=== PATIENT | male | born 1945 | race Caucasian/White ===

== ENCOUNTER 2016-12-13 16:13 | Emergency (ER) | payer MEDICARE ==
[2016-12-13] MEDS ORDERED: IPRATROPIUM-ALBUTEROL 3 ML NEB INHALATION STA (16:21)
--- NOTE | 2016-12-13 16:31 | ED ---
General Adult HPI - General Chief complaint: Shortness of Breath Stated complaint: sea Time Seen by Provider: 12/13/16 16:19 Source: patient, EMS, RN notes reviewed Mode of arrival: EMS Limitations: no limitations - History of Present Illness Initial comments: Patient is a pleasant 71-year-old male presenting to the emergency department complaining of difficulty breathing. Onset of symptoms was today. No fevers. Patient does have a cough however this is chronic and unchanged. Patient has a history of smoking however is not currently a smoker. No chest pain. No leg pain or leg swelling. No history of similar symptoms previously. No history of chronic lung problems. - Related Data Home Medications Medication Instructions Recorded Confirmed Ibuprofen [Advil] 200 mg PO Q6HR PRN 12/13/16 12/13/16 glipiZIDE XL [Glucotrol Xl] 5 mg PO DAILY 12/13/16 12/13/16 metFORMIN HCL [Glucophage] 500 mg PO BID 12/13/16 12/13/16 Previous Rx's Medication Instructions Recorded Albuterol Inhaler [Ventolin Hfa 2 puff INHALATION Q4HR PRN #1 12/13/16 Inhaler] inhaler predniSONE 20 mg PO BID #10 tab 12/13/16 Allergies Allergy/AdvReac Type Severity Reaction Status Date / Time No Known Allergies Allergy Verified 12/13/16 16:40 Review of Systems ROS Statement: Those systems with pertinent positive or pertinent negative responses have been documented in the HPI. ROS Other: All systems not noted in ROS Statement are negative. Constitutional: Denies: fever, chills Eyes: Denies: eye pain ENT: Denies: ear pain Respiratory: Reports: cough, dyspnea Cardiovascular: Denies: chest pain Endocrine: Reports: fatigue Gastrointestinal: Denies: abdominal pain Genitourinary: Denies: urgency Musculoskeletal: Denies: back pain Skin: Denies: rash Neurological: Denies: weakness Past Medical History Past Medical History: Diabetes Mellitus Additional Past Medical History / Comment(s): Prostate cancer History of Any Multi-Drug Resistant Organisms: None Reported Past Surgical History: No Surgical Hx Reported Past Psychological History: No Psychological Hx Reported Smoking Status: Never smoker Past Alcohol Use History: None Reported Past Drug Use History: None Reported General Exam Limitations: no limitations General appearance: alert, in no apparent distress Head exam: Present: atraumatic Eye exam: Present: normal appearance, PERRL ENT exam: Present: normal oropharynx Neck exam: Present: normal inspection Respiratory exam: Present: wheezes Cardiovascular Exam: Present: tachycardia GI/Abdominal exam: Present: soft. Absent: tenderness Extremities exam: Present: normal inspection. Absent: pedal edema, calf tenderness Back exam: Present: normal inspection Neurological exam: Present: alert Psychiatric exam: Present: normal affect, normal mood Skin exam: Present: normal color Course Vital Signs 12/13/16 12/13/16 12/13/16 16:18 16:50 17:09 Temperature 98.5 F Pulse Rate 107 H 108 H 104 H Respiratory 26 H 16 Rate Blood Pressure 133/72 141/79 O2 Sat by Pulse 93 L 96 Oximetry 12/13/16 12/13/16 17:26 17:50 Temperature 98.2 F Pulse Rate 107 H 111 H Respiratory 12 Rate Blood Pressure 152/70 O2 Sat by Pulse 95 Oximetry EKG Findings - EKG Comments: EKG Findings:: Sinus tachycardia 105. FL 168. QRS 146. QT 384. QTC 507. Left axis. Right bundle branch block. Left anterior fascicular block. Inferior Q waves. No acute ST change. Medical Decision Making - Medical Decision Making Patient reexamined and significantly improved. Heart rate 104. Pulse ox 95% on room air. Patient requesting discharge. Patient updated on results and need for follow-up. Son does state patient does have a history of COPD. - Lab Data Result diagrams: 12/13/16 16:19 12/13/16 16:19 Lab Results 12/13/16 12/13/16 12/13/16 Range/Units 16:19 16:19 16:19 WBC 9.2 (3.8-10.6) k/uL RBC 4.58 (4.30-5.90) m/uL Hgb 15.5 (13.0-17.5) gm/dL Hct 47.3 (39.0-53.0) % MCV 103.2 H (80.0-100.0) fL MCH 33.7 (25.0-35.0) pg MCHC 32.7 (31.0-37.0) g/dL RDW 13.2 (11.5-15.5) % Plt Count 210 (150-450) k/uL Neutrophils % 70 % Lymphocytes % 20 % Monocytes % 5 % Eosinophils % 1 % Basophils % 1 % Neutrophils # 6.4 (1.3-7.7) k/uL Lymphocytes # 1.8 (1.0-4.8) k/uL Monocytes # 0.5 (0-1.0) k/uL Eosinophils # 0.1 (0-0.7) k/uL Basophils # 0.1 (0-0.2) k/uL Macrocytosis Slight PT (9.0-12.0) sec INR (<1.1) APTT (22.0-30.0) sec D-Dimer (<0.60) mg/L FEU Sodium 135 L (137-145) mmol/L Potassium 4.1 (3.5-5.1) mmol/L Chloride 97 L (98-107) mmol/L Carbon Dioxide 22 (22-30) mmol/L Anion Gap 16 mmol/L BUN 20 (9-20) mg/dL Creatinine 1.02 (0.66-1.25) mg/dL Est GFR (MDRD) Af Amer >60 (>60 ml/min/1.73 sqM) Est GFR (MDRD) Non-Af >60 (>60 ml/min/1.73 sqM) Glucose 84 (74-99) mg/dL Calcium 8.9 (8.4-10.2) mg/dL Total Bilirubin 0.7 (0.2-1.3) mg/dL AST 40 (17-59) U/L ALT 46 (21-72) U/L Alkaline Phosphatase 78 (38-126) U/L Total Creatine Kinase 175 H (55-170) U/L CK-MB (CK-2) 2.2 (0.0-2.4) ng/mL CK-MB (CK-2) Rel Index 1.3 Troponin I <0.012 (0.000-0.034) ng/mL NT-Pro-B Natriuret Pep pg/mL Total Protein 8.0 (6.3-8.2) g/dL Albumin 4.4 (3.5-5.0) g/dL 12/13/16 12/13/16 Range/Units 16:19 16:19 WBC (3.8-10.6) k/uL RBC (4.30-5.90) m/uL Hgb (13.0-17.5) gm/dL Hct (39.0-53.0) % MCV (80.0-100.0) fL MCH (25.0-35.0) pg MCHC (31.0-37.0) g/dL RDW (11.5-15.5) % Plt Count (150-450) k/uL Neutrophils % % Lymphocytes % % Monocytes % % Eosinophils % % Basophils % % Neutrophils # (1.3-7.7) k/uL Lymphocytes # (1.0-4.8) k/uL Monocytes # (0-1.0) k/uL Eosinophils # (0-0.7) k/uL Basophils # (0-0.2) k/uL Macrocytosis PT 10.2 (9.0-12.0) sec INR 1.0 (<1.1) APTT 22.7 (22.0-30.0) sec D-Dimer 0.44 (<0.60) mg/L FEU Sodium (137-145) mmol/L Potassium (3.5-5.1) mmol/L Chloride (98-107) mmol/L Carbon Dioxide (22-30) mmol/L Anion Gap mmol/L BUN (9-20) mg/dL Creatinine (0.66-1.25) mg/dL Est GFR (MDRD) Af Amer (>60 ml/min/1.73 sqM) Est GFR (MDRD) Non-Af (>60 ml/min/1.73 sqM) Glucose (74-99) mg/dL Calcium (8.4-10.2) mg/dL Total Bilirubin (0.2-1.3) mg/dL AST (17-59) U/L ALT (21-72) U/L Alkaline Phosphatase (38-126) U/L Total Creatine Kinase (55-170) U/L CK-MB (CK-2) (0.0-2.4) ng/mL CK-MB (CK-2) Rel Index Troponin I (0.000-0.034) ng/mL NT-Pro-B Natriuret Pep 54 pg/mL Total Protein (6.3-8.2) g/dL Albumin (3.5-5.0) g/dL - Radiology Data Radiology results: image reviewed (Chest x-ray shows no acute process) Disposition Clinical Impression: Acute exacerbation of chronic obstructive airways disease Disposition: HOME SELF-CARE Condition: Stable Instructions: COPD (Chronic Obstructive Pulmonary Disease) (ED) Additional Instructions: Please follow-up with your doctor this week. Return for difficulty in breathing , fevers, worsening symptoms or other concerns. Prescriptions: Albuterol Inhaler [Ventolin Hfa Inhaler] 2 puff INHALATION Q4HR PRN #1 inhaler PRN Reason: Dyspnea predniSONE 20 mg PO BID #10 tab Referrals: Tomi Toro MD [Primary Care Provider] - 1-2 days Time of Disposition: 18:16
[2016-12-13 16:36] LABS: Basophils # (A) 0.1 k/uL (0-0.2); Basophils % (A) 1 %; CH 35.2; CHCM 34.3; Eosinophils # (A) 0.1 k/uL (0-0.7); Eosinophils % (A) 1 %; HCT 47.3 % (39.0-53.0); HDW 2.52; HGB 15.5 gm/dL (13.0-17.5); Luc # (Auto) 0.28; Luc % (Auto) 3; Lymphocytes # (A) 1.8 k/uL (1.0-4.8); Lymphocytes % (A) 20 %; MCH 33.7 pg (25.0-35.0); MCHC 32.7 g/dL (31.0-37.0); MCV 103.2 fL (80.0-100.0); Macrocytosis Slight; Mean Platelet Volume 6.5; Monocytes # (A) 0.5 k/uL (0-1.0); Monocytes % (A) 5 %; Neutrophils # (A) 6.4 k/uL (1.3-7.7); Neutrophils % (A) 70 %; RBC 4.58 m/uL (4.30-5.90); RDW 13.2 % (11.5-15.5); WBC 9.2 k/uL (3.8-10.6)
[2016-12-13 16:48] LABS: Partial Thromboplastin Time 22.7 sec (22.0-30.0); Prothrombin Time 10.2 sec (9.0-12.0)
[2016-12-13 16:49] LABS: ALT 46 U/L (21-72); AST 40 U/L (17-59); Alkaline Phosphatase 78 U/L (38-126); Anion Gap 16 mmol/L; Blood Urea Nitrogen 20 mg/dL (9-20); Calcium 8.9 mg/dL (8.4-10.2); Carbon Dioxide 22 mmol/L (22-30); Chloride 97 mmol/L (98-107); Glucose 84 mg/dL (74-99); Non-African American GFR(MDRD) >60 (>60 ml/min/1.73 sqM); Potassium 4.1 mmol/L (3.5-5.1); Sodium 135 mmol/L (137-145); Total Bilirubin 0.7 mg/dL (0.2-1.3)
[2016-12-13 17:01] LABS: Creatine Kinase 175 U/L (55-170)
[2016-12-13 17:14] LABS: Creatine Kinase MB 2.2 ng/mL (0.0-2.4); Troponin I <0.012 ng/mL (0.000-0.034)
--- NOTE | 2016-12-13 17:14 | XR ---
EXAMINATION TYPE: XR chest 2V DATE OF EXAM: 12/13/2016 5:03 PM COMPARISON: 01/08/2012 HISTORY: Dyspnea TECHNIQUE: Frontal and lateral views of the chest are obtained. FINDINGS: There is no focal air space opacity, pleural effusion, or pneumothorax seen. The cardiac silhouette size is within normal limits. The osseous structures are intact. IMPRESSION: No acute cardiopulmonary process.
[2016-12-13 17:53] VITALS: BP 152/70; PULSE 111; RESP 12; TEMP 98.2
== END 2016-12-13 18:24 | disposition home or self-care (01) ==
LOC: EC 16:13
DX: J44.1 Chronic obstructive pulmonary disease with (acute) exacerbation (principal); E11.9 Type 2 diabetes mellitus without complications; Z87.891 Personal history of nicotine dependence; Z85.46 Personal history of malignant neoplasm of prostate; Z79.84 Long term (current) use of oral hypoglycemic drugs
CPT/HCPCS: 36415; 71020; 80053; 82550; 82553; 83880; 84484; 85025; 85379; 85610; 85730; 93005; 94640; 99285

== ENCOUNTER 2020-04-28 14:35 | Inpatient (IN) | payer MEDICARE ==
[2020-04-28 14:59] LABS: Glucose,Whole Blood 413 mg/dL (75-99)
[2020-04-28] MEDS ORDERED: SODIUM CHLORIDE 0.9% 1,000 ML IV STA (15:13)
--- NOTE | 2020-04-28 16:00 | XR ---
EXAMINATION TYPE: XR chest 2V DATE OF EXAM: 04/28/2020 COMPARISON: Chest x-ray December 13, 2016. HISTORY: Weakness. TECHNIQUE: Frontal and lateral views of the chest are obtained. FINDINGS: There is no focal air space opacity, pleural effusion, or pneumothorax seen. The cardiac silhouette size is upper limits of normal. Overlying EKG leads. The osseous structures are intact. IMPRESSION: No acute cardiopulmonary process.
[2020-04-28 16:05] LABS: ALT 16 U/L (4-49); AST 90 U/L (17-59); African American GFR (CKD) 73 (>60 ml/min/1.73 sqM); Albumin 4.1 g/dL (3.5-5.0); Alkaline Phosphatase 100 U/L (38-126); Anion Gap 10 mmol/L; Blood Urea Nitrogen 35 mg/dL (9-20); Calcium 9.7 mg/dL (8.4-10.2); Carbon Dioxide 28 mmol/L (22-30); Chloride 98 mmol/L (98-107); Glucose 409 mg/dL (74-99); Magnesium 1.9 mg/dL (1.6-2.3); Non-African American GFR(CKD) 63 (>60 ml/min/1.73 sqM); Partial Thromboplastin Time 22.2 sec (22.0-30.0); Potassium 4.6 mmol/L (3.5-5.1); Sodium 136 mmol/L (137-145); Total Bilirubin 0.8 mg/dL (0.2-1.3); Total Protein 7.5 g/dL (6.3-8.2)
[2020-04-28 16:10] LABS: Basophils % (A) 0 %; Eosinophils # (A) 0.1 k/uL (0-0.7); Eosinophils % (A) 0 %; HCT 45.9 % (39.0-53.0); HGB 14.6 gm/dL (13.0-17.5); Lymphocytes # (A) 0.7 k/uL (1.0-4.8); Lymphocytes % (A) 5 %; MCH 30.4 pg (25.0-35.0); MCHC 31.8 g/dL (31.0-37.0); MCV 95.4 fL (80.0-100.0); Mean Platelet Volume 6.9; Monocytes # (A) 0.7 k/uL (0-1.0); Monocytes % (A) 4 %; Neutrophils # (A) 13.3 k/uL (1.3-7.7); Neutrophils % (A) 89 %; Platelet Count 271 k/uL (150-450); RBC 4.81 m/uL (4.30-5.90); RDW 13.2 % (11.5-15.5); WBC 14.9 k/uL (3.8-10.6)
--- NOTE | 2020-04-28 16:21 | ED ---
Fall HPI - General Chief Complaint: Fall Stated Complaint: Syncope,High Blood Sugar Time Seen by Provider: 04/28/20 15:13 Source: patient, EMS Mode of arrival: EMS Limitations: no limitations - History of Present Illness Initial Comments: 75-year-old male presents emergency Department chief well weakness. Patient is been doing more with the last few days days. Patient states she's been having trouble getting up and down off the toilet. Patient states he was unable to get up today. Patient also states he fell out of bed but had no head injury no loss conscious. Doesn't want a headache dizziness. Patient states she just feels weak. Also states that hisbeen having mild swelling in his blood sugar has been elevated. Patient does admit that he is a diabetic. Does not always take medications. He has no mental abdominal pain. - Related Data Home Medications Medication Instructions Recorded Confirmed glipiZIDE XL [Glucotrol XL] 5 mg PO DAILY 12/13/16 06/23/18 Previous Rx's Medication Instructions Recorded Acetaminophen Tab [Tylenol] 650 mg PO Q6HR PRN tab 06/27/18 Mesalamine W/Cleansing Wipes 4 gm RECTAL HS #30 ml 06/27/18 [Rowasa 4 gm/60 ml Enema Kit] Omeprazole [PriLOSEC] 40 mg PO AC-BRKFST #14 capsule. 06/27/18 metFORMIN HCL [Glucophage] 500 mg PO BID #0 06/27/18 Allergies Allergy/AdvReac Type Severity Reaction Status Date / Time No Known Allergies Allergy Verified 06/23/18 13:56 Review of Systems ROS Statement: Those systems with pertinent positive or pertinent negative responses have been documented in the HPI. ROS Other: All systems not noted in ROS Statement are negative. Past Medical History Past Medical History: Diabetes Mellitus Additional Past Medical History / Comment(s): Prostate cancer History of Any Multi-Drug Resistant Organisms: None Reported Past Surgical History: No Surgical Hx Reported Past Anesthesia/Blood Transfusion Reactions: No Reported Reaction Past Psychological History: No Psychological Hx Reported Smoking Status: Former smoker Past Alcohol Use History: Occasional Past Drug Use History: None Reported - Past Family History Father History Unknown: Yes Mother History Unknown: Yes General Exam Limitations: no limitations General appearance: alert, in no apparent distress Head exam: Present: atraumatic, normocephalic, normal inspection Course Vital Signs 04/28/20 14:53 Temperature 99.2 F Pulse Rate 114 H Respiratory 18 Rate Blood Pressure 152/91 O2 Sat by Pulse 96 Oximetry Medical Decision Making - Medical Decision Making 75-year-old male presented for jaundice weakness. Patient had labs dissection urinalysis. Patient has evidence of rhabdomyolysis. Patient was hydrated will be admitted for monitoring, hydration. - Lab Data Result diagrams: 04/28/20 Unknown 04/28/20 Unknown Lab Results 04/28/20 04/28/20 04/28/20 Range/Units 14:38 Unknown Unknown WBC 14.9 H (3.8-10.6) k/uL RBC 4.81 (4.30-5.90) m/uL Hgb 14.6 (13.0-17.5) gm/dL Hct 45.9 (39.0-53.0) % MCV 95.4 (80.0-100.0) fL MCH 30.4 (25.0-35.0) pg MCHC 31.8 (31.0-37.0) g/dL RDW 13.2 (11.5-15.5) % Plt Count 271 (150-450) k/uL Neutrophils % 89 % Lymphocytes % 5 % Monocytes % 4 % Eosinophils % 0 % Basophils % 0 % Neutrophils # 13.3 H (1.3-7.7) k/uL Lymphocytes # 0.7 L (1.0-4.8) k/uL Monocytes # 0.7 (0-1.0) k/uL Eosinophils # 0.1 (0-0.7) k/uL Basophils # 0.0 (0-0.2) k/uL PT 10.0 (9.0-12.0) sec INR 1.0 (<1.2) APTT 22.2 (22.0-30.0) sec Sodium (137-145) mmol/L Potassium (3.5-5.1) mmol/L Chloride (98-107) mmol/L Carbon Dioxide (22-30) mmol/L Anion Gap mmol/L BUN (9-20) mg/dL Creatinine (0.66-1.25) mg/dL Est GFR (CKD-EPI)AfAm (>60 ml/min/1.73 sqM) Est GFR (CKD-EPI)NonAf (>60 ml/min/1.73 sqM) Glucose (74-99) mg/dL POC Glucose (mg/dL) 413 H (75-99) mg/dL POC Glu [employer] ID Libby Rendon Plasma Lactic Acid Peng (0.7-2.0) mmol/L Calcium (8.4-10.2) mg/dL Magnesium (1.6-2.3) mg/dL Total Bilirubin (0.2-1.3) mg/dL AST (17-59) U/L ALT (4-49) U/L Alkaline Phosphatase (38-126) U/L Creatine Kinase (55-170) U/L Troponin I (0.000-0.034) ng/mL Total Protein (6.3-8.2) g/dL Albumin (3.5-5.0) g/dL Acetone, Qual (Negative) 04/28/20 04/28/20 04/28/20 Range/Units Unknown Unknown Unknown WBC (3.8-10.6) k/uL RBC (4.30-5.90) m/uL Hgb (13.0-17.5) gm/dL Hct (39.0-53.0) % MCV (80.0-100.0) fL MCH (25.0-35.0) pg MCHC (31.0-37.0) g/dL RDW (11.5-15.5) % Plt Count (150-450) k/uL Neutrophils % % Lymphocytes % % Monocytes % % Eosinophils % % Basophils % % Neutrophils # (1.3-7.7) k/uL Lymphocytes # (1.0-4.8) k/uL Monocytes # (0-1.0) k/uL Eosinophils # (0-0.7) k/uL Basophils # (0-0.2) k/uL PT (9.0-12.0) sec INR (<1.2) APTT (22.0-30.0) sec Sodium 136 L (137-145) mmol/L Potassium 4.6 (3.5-5.1) mmol/L Chloride 98 (98-107) mmol/L Carbon Dioxide 28 (22-30) mmol/L Anion Gap 10 mmol/L BUN 35 H (9-20) mg/dL Creatinine 1.15 (0.66-1.25) mg/dL Est GFR (CKD-EPI)AfAm 73 (>60 ml/min/1.73 sqM) Est GFR (CKD-EPI)NonAf 63 (>60 ml/min/1.73 sqM) Glucose 409 H (74-99) mg/dL POC Glucose (mg/dL) (75-99) mg/dL POC Glu [employer] ID Plasma Lactic Acid Peng 3.3 H* (0.7-2.0) mmol/L Calcium 9.7 (8.4-10.2) mg/dL Magnesium 1.9 (1.6-2.3) mg/dL Total Bilirubin 0.8 (0.2-1.3) mg/dL AST 90 H (17-59) U/L ALT 16 (4-49) U/L Alkaline Phosphatase 100 (38-126) U/L Creatine Kinase 5041 H* (55-170) U/L Troponin I <0.012 (0.000-0.034) ng/mL Total Protein 7.5 (6.3-8.2) g/dL Albumin 4.1 (3.5-5.0) g/dL Acetone, Qual Negative (Negative) - EKG Data -: EKG Interpreted by [place] EKG Comments: EKG performed at 14:57 sinus tachycardia left axis deviation right bundle rate of 113 RI 152 QRS 150 QT/QTC 362/496 Disposition Clinical Impression: Fall, Rhabdomyolysis, Weakness, Hyperglycemia Disposition: ADMITTED IP TO THIS HOSP Condition: Fair Referrals: Tomi Toro MD [Primary Care Provider] - 1-2 days
[2020-04-28 16:38] LABS: Creatine Kinase 5041 U/L (55-170)
[2020-04-28] MEDS ORDERED: SODIUM CHLORIDE 0.9% 1,000 ML IV ONE (16:40)
[2020-04-28] MEDS: SODIUM CHLORIDE 0.9% 1,000 ML IV SCH (17:08)
[2020-04-28 17:22] LABS: Appearance,Urine Clear (Clear); Bilirubin,Urine Negative (Negative); Blood,Urine Moderate (Negative); Color,Urine Light Yellow; Glucose,Urine (UA) 4+ (Negative); Hyaline Casts,Urine 1 /lpf (0-2); Ketones,Urine Trace (Negative); Leukocyte Esterase,Urine Negative (Negative); Mucus,Urine Rare /hpf; Nitrite,Urine Negative (Negative); Protein,Urine Trace (Negative); RBC,Urine <1 /hpf (0-5); Specific Gravity,Urine 1.017 (1.001-1.035); Urobilinogen,Urine <2.0 mg/dL (<2.0); WBC,Urine <1 /hpf (0-5)
[2020-04-28] MEDS ORDERED: NALOXONE 0.4 MG/ML 1 ML VIAL IV PRN (17:29)
[2020-04-28] MEDS ORDERED: ONDANSETRON 4 MG/2 ML VIAL IVP PRN (17:29)
[2020-04-28] MEDS ORDERED: ACETAMINOPHEN TAB 325 MG TAB PO PRN (17:29)
[2020-04-28 17:55] LABS: Glucose,Whole Blood 334 mg/dL (75-99)
[2020-04-28] MEDS: INSULIN ASPART (NovoLOG) 100 UNIT/ML VIAL SQ SCH ×2 (17:57→20:43)
[2020-04-28] MEDS ORDERED: IPRATROPIUM-ALBUTEROL 3 ML NEB INHALATION PRN (18:08)
[2020-04-28] MEDS ORDERED: HYDROmorphone 0.5 MG/0.5 ML SYRINGE IVP PRN (18:09)
--- NOTE | 2020-04-28 19:38 | HP ---
HISTORY AND PHYSICAL DATE OF SERVICE: 04/28/2020 CHIEF COMPLAINTS: Fall and syncope and high blood sugar. HISTORY OF PRESENT ILLNESS: This 75-year-old gentleman with a past medical history of diabetes mellitus and prostate cancer, being followed by Dr. Toro in the outpatient setting, apparently had a fall and the patient complained of generalized weakness which was progressing over several days. The patient also had shortness of breath. The patient had difficulty getting up from the toilet and he fell down. The patient did not lose any consciousness. Patient came to [facility] and was admitted for evaluation and treatment. The lactic acid was 3.3 and creatinine kinase was 5041. The blood sugar was found to be elevated. WBC was also elevated. A chest x-ray, which was reviewed personally by me, showed no acute cardiopulmonary process, and the patient was admitted for further evaluation and treatment. There is no history of any fever, rigor or chills. No history of headache, loss of consciousness, seizures. PAST MEDICAL HISTORY: History of diabetes mellitus, prostate cancer. HOME MEDICATIONS: 1. Glucophage 500 mg t.i.d. 2. Glucotrol XL 10 mg daily. 3. Prilosec 40 mg with breakfast. 4. Imodium 82 mg b.i.d. 5. Lasix 20 mg with breakfast. 6. Aricept 5 mg. 7. Carbidopa L-dopa 1 b.i.d. 8. Ventolin HFA 1 puff b.i.d. ALLERGIES: NONE. FAMILY HISTORY: No history of heart disease or strokes in the family. SOCIAL HISTORY: No history of smoking. No history of alcohol intake. REVIEW OF SYSTEMS: ENT: No diminished hearing. No diminished vision. CARDIOVASCULAR SYSTEM: As mentioned earlier. RESPIRATORY SYSTEM: As mentioned earlier. GI: As mentioned earlier. : No dysuria or retention. NERVOUS SYSTEM: As mentioned earlier. ALLERGY/IMMUNOLOGY: No asthma, hayfever. MUSCULOSKELETAL: As mentioned earlier. HEMATOLOGY/ONCOLOGY: No history of anemia. ENDOCRINE: As mentioned earlier. CONSTITUTIONAL: As mentioned earlier. DERMATOLOGY: Negative. RHEUMATOLOGY: Negative. PSYCHIATRY: As mentioned earlier. PHYSICAL EXAMINATION: Patient alert and oriented x3. Pulse 89, blood pressure 150/93, respiration 18, temperature 99.2, pulse ox 99% on 2 L. HEENT: Conjunctivae normal. Oral mucosa moist. NECK: No jugular venous distention. No carotid bruit. No lymph node enlargement. CARDIOVASCULAR SYSTEM: S1, S2 muffled. No S3. No S4. RESPIRATORY SYSTEM: Breath sounds diminished at the bases. A few scattered rhonchi and crackles. ABDOMEN: Soft, obese, non-tender. No mass palpable. LEGS: Minimal leg edema. NERVOUS SYSTEM: Higher functions as mentioned earlier. Moves all 4 limbs. No focal motor or sensory deficit. LYMPHATICS: No lymph node palpable in neck, axillae or groin. JOINTS: No active deforming arthropathy. LABS: WBC 14.9, hemoglobin 14.6. Sodium 136 and lactic acid 3.3 and creatinine kinase 5041. ASSESSMENT: 1. Syncope and fall; rule out cardiac arrhythmia. 2. Hypoglycemia with diabetes mellitus, type 2, uncontrolled. 3. Acute rhabdomyolysis. 4. Generalized weakness for evaluation. 5. Shortness of breath for evaluation. 6. Elevated lactic acid; rule out sepsis. 7. Elevated white count. 8. Hyponatremia. 9. Obesity with body mass index of 33.5. 10.History of prostate cancer. 11.History of nicotine dependence. RECOMMENDATIONS AND DISCUSSION: In this 75-year-old gentleman who presented with multiple complex medical issues, we will monitor the patient closely, continue the current medications, continue with symptomatic treatment. Otherwise, monitor blood sugars closely. We will initiate Accu- Cheks before meals and at bedtime. IV hydration. Chest x-ray does not show any acute abnormality. I will obtain blood cultures and continue to monitor. Order a D-dimer; if it is positive, CT angio of the chest. Otherwise PT/OT evaluation, possible ECF rehab. Prognosis is guarded because of multiple complex medical issues. forming process line worker will also be consulted. A copy of this dictation is being forwarded to Dr. Gutierrez, who is the primary physician. MMODL / IJN: [id number] /
[2020-04-28] MEDS: IPRATROPIUM-ALBUTEROL 3 ML NEB INHALATION SCH (19:46)
[2020-04-28 20:30] LABS: Glucose,Whole Blood 355 mg/dL (75-99)
[2020-04-28] MEDS: CARBIDOPA-LEVODOPA 10-100 MG 1 EACH TAB PO SCH (20:43)
[2020-04-28] MEDS: LOPERAMIDE 2 MG CAP PO SCH (20:43)
[2020-04-28] MEDS: HEPARIN SODIUM,PORCINE 5,000 UNIT/ML 1 ML VIAL SQ SCH (20:43)
[2020-04-29] MEDS: HYDROcodone/APAP 5-325MG 1 EACH TAB PO PRN ×2 (00:36→11:31)
[2020-04-29] MEDS: SODIUM CHLORIDE 0.9% 1,000 ML IV SCH ×3 (02:56→18:11)
[2020-04-29 06:20] LABS: Glucose,Whole Blood 262 mg/dL (75-99)
[2020-04-29] MEDS: CARBIDOPA-LEVODOPA 10-100 MG 1 EACH TAB PO SCH ×2 (06:36→17:36)
[2020-04-29] MEDS: INSULIN ASPART (NovoLOG) 100 UNIT/ML VIAL SQ SCH ×4 (06:36→22:36)
[2020-04-29] MEDS: LOPERAMIDE 2 MG CAP PO SCH ×2 (06:36→17:35)
[2020-04-29] MEDS: DONEPEZIL 5 MG TAB PO SCH (06:36)
[2020-04-29] MEDS: PANTOPRAZOLE 40 MG TABLET PO SCH (06:36)
[2020-04-29] MEDS ORDERED: PANTOPRAZOLE 40 MG TABLET PO SCH (07:30)
[2020-04-29 08:20] LABS: Basophils % (A) 1 %; Eosinophils # (A) 0.2 k/uL (0-0.7); Eosinophils % (A) 3 %; HCT 38.3 % (39.0-53.0); HGB 12.5 gm/dL (13.0-17.5); Lymphocytes # (A) 0.9 k/uL (1.0-4.8); Lymphocytes % (A) 12 %; MCHC 32.5 g/dL (31.0-37.0); MCV 95.2 fL (80.0-100.0); Mean Platelet Volume 6.8; Monocytes # (A) 0.4 k/uL (0-1.0); Monocytes % (A) 6 %; Neutrophils % (A) 78 %; Platelet Count 219 k/uL (150-450); RBC 4.02 m/uL (4.30-5.90); RDW 13.1 % (11.5-15.5); WBC 7.7 k/uL (3.8-10.6)
[2020-04-29] MEDS: IPRATROPIUM-ALBUTEROL 3 ML NEB INHALATION SCH ×4 (08:30→19:41)
[2020-04-29 08:35] LABS: African American GFR (CKD) >90 (>60 ml/min/1.73 sqM); Anion Gap 6 mmol/L; Blood Urea Nitrogen 24 mg/dL (9-20); Calcium 8.2 mg/dL (8.4-10.2); Carbon Dioxide 29 mmol/L (22-30); Chloride 100 mmol/L (98-107); Glucose 254 mg/dL (74-99); Non-African American GFR(CKD) 90 (>60 ml/min/1.73 sqM); Sodium 135 mmol/L (137-145)
[2020-04-29] MEDS: HEPARIN SODIUM,PORCINE 5,000 UNIT/ML 1 ML VIAL SQ SCH ×2 (10:07→22:10)
[2020-04-29] MEDS: THIAMINE 100 MG TAB PO SCH (11:31)
[2020-04-29] MEDS: MULTIVITAMINS, THERA 1 EACH TAB PO SCH (11:31)
[2020-04-29] MEDS: metFORMIN 500 MG TAB PO SCH ×2 (11:31→17:36)
[2020-04-29] MEDS: FOLIC ACID 1 MG TAB PO SCH (11:31)
[2020-04-29] MEDS: FUROSEMIDE 10 MG/ML 4 ML VIAL IV SCH ×3 (11:35→23:28)
--- NOTE | 2020-04-29 11:55 | ECHOF ---
Referral Reason:chf MEASUREMENTS -------- HEIGHT: 172.7 cm WEIGHT: 122.9 kg BP: 133/83 IVSd: 1.3 cm (0.6 - 1.1) LVIDd: 3.2 cm (3.9 - 5.3) LVPWd: 1.2 cm (0.6 - 1.1) EDV(Teich): 42 ml IVSs: 1.8 cm LVIDs: 2.5 cm LVPWs: 1.5 cm %IVS Thck: 32 % ESV(Teich): 23 ml EF(Teich): 45 % %FS: 22 % SV(Teich): 19 ml RVIDd: 4.3 cm (< 3.3) LALs A4C: 6.0 cm LAAs A4C: 21.2 cm LAESV A-L A4C: 64 ml LAESV MOD A4C: 55 ml LALs A2C: 4.6 cm LAAs A2C: 15.9 cm LAESV A-L A2C: 46 ml LAESV MOD A2C: 42 ml LAESV(A-L): 62 ml LAESV Index (A-L): 26.51 ml/m Ao Diam: 3.6 cm (2.0 - 3.7) AV Cusp: 1.9 cm (1.5 - 2.6) EPSS: 0.5 cm MV E Jase: 0.82 m/s MV DecT: 166 ms MV Dec [place]: 5.0 m/s MV A Jase: 0.82 m/s MV E/A Ratio: 1.01 MV PHT: 48 ms LVOT Vmax: 0.98 m/s LVOT maxP.85 mmHg AV Vmax: 1.41 m/s AV maxP.00 mmHg TR Vmax: 1.29 m/s TR maxP.61 mmHg RAP: 5.00 mmHg RVSP: 11.61 mmHg MV EF SLOPE: 60.36 mm/s (70 - 150) MV EXCURSION: 13.78 mm (> 18.000) FINDINGS -------- This was a technically difficult study with suboptimal views. The left ventricular size is normal. There is mild concentric left ventricular hypertrophy. Overa ll left ventricular systolic function is low-normal with, an EF between 50 - 55 %. The right ventricle is moderately enlarged. Normal LA size by volume 22+/-6 ml/m2. The right atrium was not well visualized. 5.0mg of Lumason was utilized for enhancement of images Interatrial and interventricular septum intact. The aortic valve was not well visualized. There is no evidence of aortic regurgitation. There is no evidence of aortic stenosis. The mitral valve was not well visualized. There is trace to mild mitral regurgitation. Mild tricuspid regurgitation present. There is no evidence of pulmonary hypertension. The right v entricular systolic pressure, as measured by Doppler, is 11.61mmHg. The pulmonic valve was not well visualized. The aortic root size is normal. IVC Not well visulized. There is no pericardial effusion. CONCLUSIONS -------- 1. The left ventricular size is normal. 2. There is mild concentric left ventricular hypertrophy. 3. Overall left ventricular systolic function is low-normal with, an EF between 50 - 55 %. 4. The right ventricle is moderately enlarged. 5. There is trace to mild mitral regurgitation. 6. Mild tricuspid regurgitation present. AIRCRAFT ACCESS[employer]IES MECHANIC: Tg Patel [facility]
[2020-04-29 12:27] LABS: Glucose,Whole Blood 369 mg/dL (75-99)
[2020-04-29 12:57] VITALS: BMI 41.2
--- NOTE | 2020-04-29 13:10 | P.CNPUL ---
History of Present Illness Consult date: 04/29/20 Reason for consult: dyspnea Chief complaint: Weakness, fall, rhabdomyolysis History of present illness: 75-year-old white male patient with past medical history of diabetes, COPD, prostate cancer treated with radiation, ex-smoker, patient carries a 47 years of smoking of one pack per day, who presented to the hospital per EMS after having a syncopal episode, and a fall at home. He has been complaining of weakness wh ich was increasing over last couple days. Patient was having trouble getting up and down off the toilet. He fell out of bed by denied any head injury or loss of consciousness. No headaches, no lightheadedness or dizziness. Patient was just complaining of feeling weak. He has noticed increased blood sugars, states has been compliant with his medications, no abdominal pain, no nausea vomiting o r diarrhea. No fever or chills. No cough or congestion, no difficulty breathing. Chest x-ray showed no acute cardiopulmonary process. Chest x-ray showed no acute cardiopulmonary process. EKG showed sinus tachycardia with a right bundle branch block pattern, and evidence of lateral and inferior infarct of undetermined age. Low-grade temperature with 99.2F on admission, has been afebrile overnight, currently on 2 L of oxygen and pulse ox 97%, hemodynamically patient has remained stable. Labs showed a mild leukocytosis with a white blood cell count of 14.9, hemoglobin of 14.6, d-dimer of 0.59, sodium of 136, rest of electrolytes were within normal limits, BUN 35 creatinine is 1.15, plasma lactic acid was mildly elevated at 3.3, total CK was 5041, troponin was negative at less than 0.012, urinalysis showed 4+ glucose, trace ketones, moderate amount of blood, but negative for any signs of infection, serum acetone was negative, serum glucose was 355. Patient was given IV fluids, total of 2 L, and his maintenance IV fluids infusing at a rate of 100. Patient was started on empiric diuretics in the form of Rocephin. Review of Systems All systems: negative Constitutional: Reports weakness, Denies chills, Denies fever Eyes: denies blurred vision, denies pain Ears, nose, mouth and throat: Denies headache, Denies sore throat Cardiovascular: Denies chest pain, Denies shortness of breath Respiratory: Denies cough Gastrointestinal: Reports diarrhea, Denies abdominal pain, Denies nausea, Denies vomiting Musculoskeletal: Denies myalgias Integumentary: Denies pruritus, Denies rash Neurological: Reports weakness, Denies numbness Psychiatric: Denies anxiety, Denies depression Endocrine: Denies fatigue, Denies weight change Past Medical History Past Medical History: Diabetes Mellitus Additional Past Medical History / Comment(s): Prostate cancer treated with radiation therapy in 2018, Parkinson's disease, obesity History of Any Multi-Drug Resistant Organisms: None Reported Past Surgical History: No Surgical Hx Reported Past Anesthesia/Blood Transfusion Reactions: No Reported Reaction Past Psychological History: No Psychological Hx Reported Smoking Status: Former smoker (Exsmoker, smoked from [id number] and he smoked 1-2 PPD) Past Alcohol Use History: Occasional Past Drug Use History: None Reported Additional Drug Use History / Comment(s): pt states he quit smoking approximately 2013 - Past Family History Father History Unknown: Yes Mother History Unknown: Yes Medications and Allergies Home Medications Medication Instructions Recorded Confirmed Type Omeprazole [PriLOSEC] 40 mg PO AC-BRKFST #14 capsule. 06/27/18 04/28/20 Rx Albuterol Inhaler [Ventolin Hfa 1 puff INHALATION RT-BID 04/28/20 04/28/20 History Inhaler] Carbidopa-Levodopa 10-100 mg 1 tab PO AC-BID 04/28/20 04/28/20 History [Sinemet 10-100] Donepezil [Aricept] 5 mg PO AC-BRKFST 04/28/20 04/28/20 History Furosemide [Lasix] 20 mg PO AC-BRKFST 04/28/20 04/28/20 History Loperamide HCl [Imodium A-D] 2 mg PO AC-BID 04/28/20 04/28/20 History glipiZIDE XL [Glucotrol Xl] 10 mg PO AC-BID 04/28/20 04/28/20 History metFORMIN HCL [Glucophage] 500 mg PO AC-TID 04/28/20 04/28/20 History Allergies Allergy/AdvReac Type Severity Reaction Status Date / Time No Known Allergies Allergy Verified 04/28/20 17:40 Physical Exam Vitals: Vital Signs Temp Pulse Pulse Resp BP BP Pulse Ox 04/29/20 12:22 96 04/29/20 12:09 97 04/29/20 08:43 98 04/29/20 08:32 98 04/29/20 08:30 95 04/29/20 04:00 84 20 133/83 98 04/29/20 00:00 101 H 20 120/79 96 04/28/20 20:00 97.8 F 101 H 20 145/77 98 04/28/20 19:56 108 H 04/28/20 19:47 110 H 04/28/20 18:36 98.7 F 78 16 146/86 97 04/28/20 18:02 99.2 F 89 18 150/93 99 04/28/20 17:00 89 18 150/93 99 04/28/20 16:57 100 18 145/82 99 04/28/20 15:57 18 04/28/20 14:57 18 04/28/20 14:53 99.2 F 114 H 18 152/91 96 Intake and Output 04/28/20 04/29/20 04/29/20 22:59 06:59 14:59 Intake Total 480 0 Output Total 850 Balance 480 -850 0 Intake: Oral 480 0 Output: Urine 850 Other: Voiding Method Indwelling Catheter Indwelling Catheter Weight 99.79 kg 123 kg GENERAL EXAM: Alert, very pleasant, 75-year-old white male, morbidly obese, but awake and alert, oriented 3, sitting up in the recliner, currently on 2 L of o xygen, and the pulse ox of 97-99% comfortable in no apparent distress. HEAD: Normocephalic/atraumatic. EYES: Normal reaction of pupils, equal size. Conjunctiva pink, sclera white. NOSE: Clear with pink turbinates. THROAT: No erythema or exudates. NECK: No masses, no JVD, no thyroid enlargement, no adenopathy. CHEST: No chest wall deformity. Symmetrical expansion. LUNGS: Equal air entry with no crackles, wheeze, rhonchi or dullness. CVS: Regular rate and rhythm, normal S1 and S2, no gallops, no murmurs, no rubs ABDOMEN: Soft, nontender. No hepatosplenomegaly, normal bowel sounds, no guarding or rigidity. EXTREMITIES: No clubbing, mild lower extremity edema, no cyanosis, 2+ pulses and upper and lower extremities. MUSCULOSKELETAL: Muscle strength and tone normal. SPINE: No scoliosis or deformity SKIN: No rashes CENTRAL NERVOUS SYSTEM: Alert and oriented -3. No focal deficits, tone is normal in all 4 extremities. PSYCHIATRIC: Alert and oriented -3. Appropriate affect. Intact judgment and insight. Results - Laboratory Findings CBC and BMP: 04/29/20 07:29 04/29/20 07:29 PT/INR, D-dimer PT 10.0 sec (9.0-12.0) 04/28/20 Unknown INR 1.0 (<1.2) 04/28/20 Unknown D-Dimer 0.59 mg/L FEU (<0.60) 04/28/20 18:33 Abnormal lab findings: Abnormal Labs 04/28/20 04/28/20 04/28/20 14:38 16:57 17:54 WBC RBC Hgb Hct Neutrophils # Lymphocytes # Sodium BUN Glucose POC Glucose (mg/dL) 413 H 334 H Plasma Lactic Acid Peng Calcium AST Creatine Kinase Urine Protein Trace H Urine Glucose (UA) 4+ H Urine Ketones Trace H Urine Blood Moderate H Urine Mucus Rare H 04/28/20 04/28/20 04/28/20 20:28 Unknown Unknown WBC 14.9 H RBC Hgb Hct Neutrophils # 13.3 H Lymphocytes # 0.7 L Sodium 136 L BUN 35 H Glucose 409 H POC Glucose (mg/dL) 355 H Plasma Lactic Acid Peng Calcium AST 90 H Creatine Kinase 5041 H* Urine Protein Urine Glucose (UA) Urine Ketones Urine Blood Urine Mucus 04/28/20 04/29/20 04/29/20 Unknown 06:18 07:29 WBC RBC Hgb Hct Neutrophils # Lymphocytes # Sodium 135 L BUN 24 H Glucose 254 H POC Glucose (mg/dL) 262 H Plasma Lactic Acid Peng 3.3 H* Calcium 8.2 L AST Creatine Kinase Urine Protein Urine Glucose (UA) Urine Ketones Urine Blood Urine Mucus 04/29/20 04/29/20 07:29 12:02 WBC RBC 4.02 L Hgb 12.5 L Hct 38.3 L Neutrophils # Lymphocytes # 0.9 L Sodium BUN Glucose POC Glucose (mg/dL) 369 H Plasma Lactic Acid Peng Calcium AST Creatine Kinase Urine Protein Urine Glucose (UA) Urine Ketones Urine Blood Urine Mucus - Diagnostic Findings Chest x-ray: report reviewed, image reviewed Additional studies: EKG reviewed, echocardiogram reviewed Assessment and Plan Plan: Assessment: #1. Shortness of breath, possibly related to lactic acidosis, chest x-ray showed no acute cardiopulmonary process. In the shortness of breath has imp roved, lactic acidosis has resolved #2. Rhabdomyolysis, mild, related to a fall at home #3. Diabetes mellitus type II, uncontrolled #4. Possibility of COPD, severity of which is unknown at this time #5. Fluid volume overload, peripheral edema in lower extremities #6. Former smoker, carries [id number] smoking history, currently in remission #7. History of prostate cancer status post radiation therapy Plan: Echocardiogram results have been noted, we'll stop the IV fluids, and we'll give the patient IV Lasix at 40 mg every 8 hours, patient seems to fluid overloaded, has been afebrile, stool for C. diff, neurologically patient has been intact, no dizziness, no lightheadedness, no significant dyspnea, no cough or congestion. Weaning FiO2, follow-up electrolytes, daily weights. Follow-up CK in the morning. We'll continue to follow I performed a history & physical examination of the patient and discussed their management with my nurse practitioner, Allie Quiles. I reviewed the nurse practitioner's note and agree with the documented findings and plan of care. Lung sounds are positive for clear breath sounds. The findings and the impression was discussed with the patient. I attest to the documentation by the nurse practitioner. Time with Patient: Greater than 30
[2020-04-29] MEDS ORDERED: INSULIN DETEMIR (LEVEMIR) 100 UNIT/ML SYR SQ STA (14:16)
--- NOTE | 2020-04-29 14:57 | US ---
EXAMINATION TYPE: US venous doppler duplex LE DATE OF EXAM: 04/29/2020 2:12 PM COMPARISON: NONE CLINICAL HISTORY: swelling , legs. bilat leg pain, no h/o dvt SIDE PERFORMED: Bilateral TECHNIQUE: The lower extremity deep venous system is examined utilizing real time linear array sonog anjum with graded compression, doppler sonography and color-flow sonography. VESSELS IMAGED: External Iliac Vein (EIV) Common Femoral Vein Deep Femoral Vein Greater Saphenous Vein * Femoral Vein Popliteal Vein Small Saphenous Vein * Proximal Calf Veins (* superficial vessels) Right Leg: Negative for DVT Left Leg: Negative for DVT IMPRESSION: No evidence for DVT at this time.
--- NOTE | 2020-04-29 16:49 | PN ---
PROGRESS NOTE DATE OF SERVICE: 04/29/2020 This 75-year-old gentleman with a past medical history of multiple medical problems was admitted with a history of syncope and fall. The patient also had severe hyperglycemia. The patient also had features of acute rhabdomyolysis. The patient had some shortness of breath; no acute cardiopulmonary diagnosis offered by Pulmonary. Lactic acid was elevated at 3.3. Acetone was negative. A 2D echo with Doppler was also done which showed ejection fraction about 50% to 55%. The patient is complaining of generalized weakness and tiredness and significant pain also. Past medical reviewed. REVIEW OF SYSTEMS: CARDIOVASCULAR SYSTEM: No angina, palpitations. RESPIRATORY SYSTEM: As mentioned earlier. GI: As mentioned earlier. : No dysuria or retention. NERVOUS SYSTEM: No numbness, weakness. CURRENT MEDICATIONS: Reviewed. They include Tylenol, [place], DuoNeb, carbidopa L-dopa, Rocephin, Aricept, folic acid, Lasix, Glucotrol, heparin, Imodium, Glucophage, Narcan, Zofran, Protonix, vitamin B1. PHYSICAL EXAMINATION: Patient is alert, oriented x3. Pulse is 98, blood pressure 135/74, respirations 16, temperature 98.2, pulse ox 97% on 2 L. HEENT: Conjunctivae normal. NECK: No jugular venous distention. CARDIOVASCULAR SYSTEM: S1, S2 muffled. RESPIRATORY SYSTEM: Breath sounds diminished at the bases. A few scattered rhonchi. No crackles. ABDOMEN: Soft, obese, non-tender. No mass palpable. LEGS: No edema. No swelling. NERVOUS SYSTEM: No focal deficit. LABS: WBC 7.6, hemoglobin 12.5, sodium 132, potassium 4, glucose 262 and 369. NT-proBNP is only 98. ASSESSMENT: 1. Syncope and fall; rule out cardiac arrhythmia. 2. Severe muscle pain, acute rhabdomyolysis. 3. Hyperglycemia with diabetes mellitus, type 2, uncontrolled. 4. Generalized weakness for evaluation. 5. Shortness of breath, possibly secondary to lactic acidemia. 6. Rule out sepsis. On empiric antibiotics. 7. Elevated white count. 8. Hyponatremia. 9. Obesity with body mass index of 33.5. 10.History of prostate cancer. 11.History of nicotine dependence. 12.FULL CODE. RECOMMENDATIONS AND DISCUSSION: In this 75-year-old gentleman who presented with multiple complex medical issues, we will monitor the patient closely, continue the current medications, continue symptomatic treatment. Otherwise at this time I would initiate Lantus 20 units subcutaneously at bedtime and continue to monitor. Continue the empiric antibiotics. Await cultures. I would also recommend D-dimer and if is positive I would recommend a CT angio of the chest also. Prognosis extremely guarded because of multiple complex medical issues. Further recommendations to follow. PT/OT evaluation. Pain management. Possible ECF rehab. Further recommendations to follow. MMODL / IJN: [id number] /
[2020-04-29 17:09] LABS: Glucose,Whole Blood 375 mg/dL (75-99)
[2020-04-29] MEDS: glipiZIDE 10 MG TAB PO SCH (17:36)
[2020-04-29 20:25] LABS: Glucose,Whole Blood 414 mg/dL (75-99)
[2020-04-29] MEDS ORDERED: DOCUSATE 100 MG CAP PO PRN (21:11)
[2020-04-29] MEDS: INSULIN DETEMIR (LEVEMIR) 100 UNIT/ML SYR SQ SCH (22:14)
[2020-04-30] MEDS: HYDROcodone/APAP 5-325MG 1 EACH TAB PO PRN (03:01)
[2020-04-30] MEDS: SODIUM CHLORIDE 0.9% 1,000 ML IV SCH (04:25)
[2020-04-30 06:17] LABS: Glucose,Whole Blood 149 mg/dL (75-99)
[2020-04-30] MEDS: metFORMIN 500 MG TAB PO SCH ×3 (07:11→17:43)
[2020-04-30] MEDS: glipiZIDE 10 MG TAB PO SCH ×2 (07:11→17:43)
[2020-04-30] MEDS: CARBIDOPA-LEVODOPA 10-100 MG 1 EACH TAB PO SCH ×2 (07:11→17:43)
[2020-04-30] MEDS: DONEPEZIL 5 MG TAB PO SCH (07:11)
[2020-04-30] MEDS: PANTOPRAZOLE 40 MG TABLET PO SCH (07:11)
[2020-04-30] MEDS: INSULIN ASPART (NovoLOG) 100 UNIT/ML VIAL SQ SCH ×4 (07:12→20:58)
[2020-04-30] MEDS: LOPERAMIDE 2 MG CAP PO SCH ×2 (07:12→17:35)
[2020-04-30] MEDS: IPRATROPIUM-ALBUTEROL 3 ML NEB INHALATION SCH ×4 (08:03→20:49)
[2020-04-30] MEDS: FOLIC ACID 1 MG TAB PO SCH (08:41)
[2020-04-30] MEDS: HEPARIN SODIUM,PORCINE 5,000 UNIT/ML 1 ML VIAL SQ SCH ×2 (08:41→20:58)
[2020-04-30] MEDS: THIAMINE 100 MG TAB PO SCH (08:41)
[2020-04-30] MEDS: MULTIVITAMINS, THERA 1 EACH TAB PO SCH (08:41)
[2020-04-30] MEDS: FUROSEMIDE 10 MG/ML 4 ML VIAL IV SCH ×3 (08:41→23:22)
[2020-04-30 09:55] LABS: Basophils % (A) 0 %; Eosinophils # (A) 0.2 k/uL (0-0.7); Eosinophils % (A) 2 %; HCT 45.2 % (39.0-53.0); HGB 14.4 gm/dL (13.0-17.5); Lymphocytes # (A) 1.1 k/uL (1.0-4.8); Lymphocytes % (A) 13 %; MCH 30.1 pg (25.0-35.0); MCHC 31.8 g/dL (31.0-37.0); MCV 94.5 fL (80.0-100.0); Mean Platelet Volume 6.8; Monocytes # (A) 0.3 k/uL (0-1.0); Monocytes % (A) 4 %; Neutrophils # (A) 6.8 k/uL (1.3-7.7); Neutrophils % (A) 80 %; Platelet Count 274 k/uL (150-450); RBC 4.78 m/uL (4.30-5.90); RDW 12.9 % (11.5-15.5); WBC 8.4 k/uL (3.8-10.6)
[2020-04-30 10:13] LABS: Calcium 8.5 mg/dL (8.4-10.2); Potassium 3.5 mmol/L (3.5-5.1)
--- NOTE | 2020-04-30 10:22 | XR ---
EXAMINATION TYPE: XR chest 2V DATE OF EXAM: 04/30/2020 COMPARISON: 04/28/2020 INDICATION: Short of breath TECHNIQUE: Frontal and lateral views of the chest are obtained. FINDINGS: The heart size is normal. The pulmonary vasculature is normal. Small posterior pleural effusion may be present. Lung valladares otherwise appear clear. There may be so me hyperinflation. Correlate for COPD IMPRESSION: 1. Clinical correlation recommended for COPD. 2. Small pleural effusion may be present posteriorly.
[2020-04-30 12:43] LABS: Glucose,Whole Blood 210 mg/dL (75-99)
--- NOTE | 2020-04-30 13:07 | P.PN ---
Subjective Progress Note Date: 04/30/20 Principal diagnosis: Weakness, fall, rhabdomyolysis 75-year-old white male patient with past medical history of diabetes, COPD, prostate cancer treated with radiation, ex-smoker, patient carries a 47 years of smoking of one pack per day, who presented to the hospital per EMS after having a syncopal episode, and a fall at home. He has been complaining of weakness which was increasing over last couple days. Patient was having trouble getting up and down off the toilet. He fell out of bed by denied any head injury or loss of consciousness. No headaches, no lightheadedness or dizziness. Patient was just complaining of feeling weak. He has noticed increased blood sugars, states has been compliant with his medications, no abdominal pain, no nausea vomiting or diarrhea. No fever or chills. No cough or congestion, no difficulty breathing. Chest x-ray showed no acute cardiopulmonary process. Chest x-ray showed no acute cardiopulmonary process. EKG showed sinus tac hycardia with a right bundle branch block pattern, and evidence of lateral and inferior infarct of undetermined age. Low-grade temperature with 99.2F on admission, has been afebrile overnight, currently on 2 L of oxygen and pulse ox 97%, hemodynamically patient has remained stable. Labs showed a mild leukocytosis with a white blood cell count of 14.9, hemoglobin of 14.6, d-dimer of 0.59, sodium of 136, rest of electrolytes were within normal limits, BUN 35 creatinine is 1.15, plasma lactic acid was mildly elevated at 3.3, total CK was 5041, troponin was negative at less than 0.012, urinalysis showed 4+ glucose, trace ketones, moderate amount of blood, but negative for any signs of infecti on, serum acetone was negative, serum glucose was 355. Patient was given IV fluids, total of 2 L, and his maintenance IV fluids infusing at a rate of 100. Patient was started on empiric diuretics in the form of Rocephin. On 04/30/2020 patient seen in follow-up on selective care unit. He is calm and comfortable, awake, oriented 3, resting in the recliner, in no acute distress, room air pulse ox 90%, hemodynamically stable, no fever or chills, no complaint of worsening dyspnea, we started patient on diuretics yesterday, the patient is in -3.1 L over the last 24 hours, CBC was within normal limits, sodium is 137, potassium 3.5, chloride is 94, CO2 is 33, BUN is 19, creatinine is 1.06. Urine and blood culture show no growth. Lower extremity Dopplers were negative for DVT. We'll contact IV fluids yesterday, patient CK is coming down nicely, down to 999 and this morning's labs. Renal function is within normal limits. Objective - Vital Signs Vital signs: Vital Signs Temp 97.9 F 04/30/20 12:00 Pulse 100 04/30/20 12:00 Resp 17 04/30/20 12:00 BP 127/65 04/30/20 12:00 Pulse Ox 94 L 04/30/20 12:00 Intake & Output 04/29/20 04/30/20 04/30/20 18:59 06:59 18:59 Intake Total 1050 Output Total 1950 2275 Balance -900 -2275 Weight 123 kg 126 kg Intake: Intake, IV Titration 100 Amount cefTRIAXone 1 gm In 100 Sodium Chloride 0.9% 50 ml @ 100 mls/hr IVPB Q24HR [facility] Rx#:[id number] Oral 950 Output: Urine 1950 2275 Other: Voiding Method Indwelling Catheter Indwelling Catheter Indwelling Catheter - Exam GENERAL EXAM: Alert, very pleasant, 75-year-old white male, morbidly obese, but awake and alert, oriented 3, sitting up in the recliner, room air pulse ox is 94% comfortable in no apparent distress. HEAD: Normocephalic/atraumatic. EYES: Normal reaction of pupils, equal size. Conjunctiva pink, sclera white. NOSE: Clear with pink turbinates. THROAT: No erythema or exudates. NECK: No masses, no JVD, no thyroid enlargement, no adenopathy. CHEST: No chest wall deformity. Symmetrical expansion. LUNGS: Equal air entry with no crackles, wheeze, rhonchi or dullness. CVS: Regular rate and rhythm, normal S1 and S2, no gallops, no murmurs, no rubs ABDOMEN: Soft, nontender. No hepatosplenomegaly, normal bowel sounds, no guarding or rigidity. EXTREMITIES: No clubbing, mild lower extremity edema, no cyanosis, 2+ pulses and upper and lower extremities. MUSCULOSKELETAL: Muscle strength and tone normal. SPINE: No scoliosis or deformity SKIN: No rashes CENTRAL NERVOUS SYSTEM: Alert and oriented -3. No focal deficits, tone is normal in all 4 extremities. PSYCHIATRIC: Alert and oriented -3. Appropriate affect. Intact judgment and insight. - Labs CBC & Chem 7: 04/30/20 09:22 04/30/20 09:22 Labs: Abnormal Lab Results - Last 24 Hours (Table) 04/29/20 04/29/20 04/29/20 Range/Units 07:29 14:32 17:06 D-Dimer 0.76 H (<0.60) mg/L FEU Chloride (98-107) mmol/L Carbon Dioxide (22-30) mmol/L Glucose (74-99) mg/dL POC Glucose (mg/dL) 375 H (75-99) mg/dL Creatine Kinase (55-170) U/L Procalcitonin 0.16 H (0.02-0.09) ng/mL 04/29/20 04/30/20 04/30/20 Range/Units 20:24 06:16 09:22 D-Dimer (<0.60) mg/L FEU Chloride 94 L (98-107) mmol/L Carbon Dioxide 33 H (22-30) mmol/L Glucose 226 H (74-99) mg/dL POC Glucose (mg/dL) 414 H 149 H (75-99) mg/dL Creatine Kinase 999 H (55-170) U/L Procalcitonin (0.02-0.09) ng/mL 04/30/20 Range/Units 12:23 D-Dimer (<0.60) mg/L FEU Chloride (98-107) mmol/L Carbon Dioxide (22-30) mmol/L Glucose (74-99) mg/dL POC Glucose (mg/dL) 210 H (75-99) mg/dL Creatine Kinase (55-170) U/L Procalcitonin (0.02-0.09) ng/mL Microbiology - Last 24 Hours (Table) 04/28/20 22:00 Urine Culture - Final Urine,Catheterized 04/28/20 18:33 Blood Culture - Preliminary Blood No Growth after 24 hours Assessment and Plan Plan: Assessment: #1. Shortness of breath, possibly related to lactic acidosis, chest x-ray showed no acute cardiopulmonary process. In the shortness of breath has improved, lactic acidosis has resolved #2. Rhabdomyolysis, mild, related to a fall at home, improved #3. Diabetes mellitus type II, uncontrolled #4. Possibility of COPD, severity of which is unknown at this time #5. Fluid volume overload, peripheral edema in lower extremities #6. Former smoker, carries [id number] smoking history, currently in remission #7. History of prostate cancer status post radiation therapy Plan: Continue current medical treatment, continue diuretics, fluid balance status is improving, renal function is within normal limits, CK is coming down, no worsening dyspnea, continue following bmp. No acute events overnight, no worsening dyspnea and chest pain or wheezing. Cardiovascular has been noted I performed a history & physical examination of the patient and discussed their management with my nurse practitioner, Allie Quiles. I reviewed the nurse practitioner's note and agree with the documented findings and plan of care. Lung sounds are positive for clear breath sounds. The findings and the impres mihaela was discussed with the patient. I attest to the documentation by the nurse practitioner. Time with Patient: Less than 30
[2020-04-30 17:24] LABS: Glucose,Whole Blood 206 mg/dL (75-99)
--- NOTE | 2020-04-30 18:23 | P.PN ---
Subjective Progress Note Date: 04/30/20 Principal diagnosis: Weakness, fall, rhabdomyolysis 04/30/2020 patient seen in follow-up on selective care unit. He is calm and comfortable, awake, oriented 3, resting in the recliner, in no acute distress, room air pulse ox 90%, hemodynamically stable, no fever or chills, no complaint of worsening dyspnea, we started patient on diuretics yesterday, the patient is in -3.1 L over the last 24 hours, CBC was within normal limits, sodium is 137, potassium 3.5, chloride is 94, CO2 is 33, BUN is 19, creatinine is 1.06. Urine and blood culture show no growth. Lower extremity Dopplers were negative for DVT. We'll contact IV fluids yesterday, patient CK is coming down nicely, down to 999 and this morning's labs. Renal function is within normal limits. Objective - Vital Signs Vital signs: Vital Signs Temp 97.9 F 04/30/20 12:00 Pulse 100 04/30/20 12:00 Resp 17 04/30/20 12:00 BP 127/65 04/30/20 12:00 Pulse Ox 94 L 04/30/20 12:00 Intake & Output 04/29/20 04/30/20 04/30/20 18:59 06:59 18:59 Intake Total 1050 Output Total 1950 2275 Balance -900 -2275 Weight 123 kg 126 kg Intake: Intake, IV Titration 100 Amount cefTRIAXone 1 gm In 100 Sodium Chloride 0.9% 50 ml @ 100 mls/hr IVPB Q24HR [facility] Rx#:[id number] Oral 950 Output: Urine 1950 5 Other: Voiding Method Indwelling Catheter Indwelling Catheter Indwelling Catheter - Exam GENERAL EXAM: Alert, very pleasant, 75-year-old white male, morbidly obese, but awake and alert, oriented 3, sitting up in the recliner, room air pulse ox is 94% comfortable in no apparent distress. HEAD: Normocephalic/atraumatic. EYES: Normal reaction of pupils, equal size. Conjunctiva pink, sclera white. NOSE: Clear with pink turbinates. THROAT: No erythema or exudates. NECK: No masses, no JVD, no thyroid enlargement, no adenopathy. CHEST: No chest wall deformity. Symmetrical expansion. LUNGS: Equal air entry with no crackles, wheeze, rhonchi or dullness. CVS: Regular rate and rhythm, normal S1 and S2, no gallops, no murmurs, no rubs ABDOMEN: Soft, nontender. No hepatosplenomegaly, normal bowel sounds, no guar ding or rigidity. EXTREMITIES: No clubbing, mild lower extremity edema, no cyanosis, 2+ pulses and upper and lower extremities. - Labs CBC & Chem 7: 04/30/20 09:22 04/30/20 09:22 Labs: Abnormal Lab Results - Last 24 Hours (Table) 04/29/20 04/29/20 04/29/20 Range/Units 07:29 14:32 17:06 D-Dimer 0.76 H (<0.60) mg/L FEU Chloride (98-107) mmol/L Carbon Dioxide (22-30) mmol/L Glucose (74-99) mg/dL POC Glucose (mg/dL) 375 H (75-99) mg/dL Creatine Kinase (55-170) U/L Procalcitonin 0.16 H (0.02-0.09) ng/mL 04/29/20 04/30/20 04/30/20 Range/Units 20:24 06:16 09:22 D-Dimer (<0.60) mg/L FEU Chloride 94 L (98-107) mmol/L Carbon Dioxide 33 H (22-30) mmol/L Glucose 226 H (74-99) mg/dL POC Glucose (mg/dL) 414 H 149 H (75-99) mg/dL Creatine Kinase 999 H (55-170) U/L Procalcitonin (0.02-0.09) ng/mL 04/30/20 Range/Units 12:23 D-Dimer (<0.60) mg/L FEU Chloride (98-107) mmol/L Carbon Dioxide (22-30) mmol/L Glucose (74-99) mg/dL POC Glucose (mg/dL) 210 H (75-99) mg/dL Creatine Kinase (55-170) U/L Procalcitonin (0.02-0.09) ng/mL Microbiology - Last 24 Hours (Table) 04/28/20 22:00 Urine Culture - Final Urine,Catheterized 04/28/20 18:33 Blood Culture - Preliminary Blood No Growth after 24 hours Assessment and Plan Assessment: #1. Shortness of breath, possibly related to lactic acidosis, chest x-ray showed no acute cardiopulmonary process. In the shortness of breath has improved, lactic acidosis has resolved #2. Rhabdomyolysis, mild, related to a fall at home, improved #3. Diabetes mellitus type II, uncontrolled #4. Possibility of COPD, severity of which is unknown at this time #5. Fluid volume overload, peripheral edema in lower extremities Plan Continue current medical treatment, continue diuretics, fluid balance status is improving, renal function is within normal limits, CK is coming down, no worsening dyspnea, continue following bmp. No acute events overnight, no worsening dyspnea and chest pain or wheezing. Cardiovascular has been note
[2020-04-30 20:19] LABS: Glucose,Whole Blood 309 mg/dL (75-99)
[2020-04-30] MEDS: INSULIN DETEMIR (LEVEMIR) 100 UNIT/ML SYR SQ SCH (20:58)
[2020-05-01 06:05] LABS: Glucose,Whole Blood 183 mg/dL (75-99)
[2020-05-01] MEDS: INSULIN ASPART (NovoLOG) 100 UNIT/ML VIAL SQ SCH ×4 (06:41→20:40)
[2020-05-01] MEDS: DONEPEZIL 5 MG TAB PO SCH (06:41)
[2020-05-01] MEDS: PANTOPRAZOLE 40 MG TABLET PO SCH (06:41)
[2020-05-01] MEDS: CARBIDOPA-LEVODOPA 10-100 MG 1 EACH TAB PO SCH ×2 (06:41→18:53)
[2020-05-01] MEDS: metFORMIN 500 MG TAB PO SCH ×3 (06:41→16:59)
[2020-05-01] MEDS: glipiZIDE 10 MG TAB PO SCH ×2 (06:41→16:59)
[2020-05-01] MEDS: LOPERAMIDE 2 MG CAP PO SCH ×2 (06:42→16:59)
[2020-05-01] MEDS: IPRATROPIUM-ALBUTEROL 3 ML NEB INHALATION SCH ×4 (07:59→19:42)
[2020-05-01 08:22] LABS: Basophils # (A) 0.1 k/uL (0-0.2); Basophils % (A) 1 %; Eosinophils # (A) 0.2 k/uL (0-0.7); Eosinophils % (A) 2 %; HCT 43.3 % (39.0-53.0); HGB 13.6 gm/dL (13.0-17.5); Lymphocytes % (A) 12 %; MCH 29.5 pg (25.0-35.0); MCHC 31.4 g/dL (31.0-37.0); MCV 94.1 fL (80.0-100.0); Mean Platelet Volume 6.8; Monocytes # (A) 0.4 k/uL (0-1.0); Monocytes % (A) 5 %; Neutrophils # (A) 6.5 k/uL (1.3-7.7); Neutrophils % (A) 80 %; Platelet Count 259 k/uL (150-450); RBC 4.61 m/uL (4.30-5.90); RDW 12.9 % (11.5-15.5); WBC 8.1 k/uL (3.8-10.6)
[2020-05-01 08:36] LABS: African American GFR (CKD) >90 (>60 ml/min/1.73 sqM); Anion Gap 4 mmol/L; Blood Urea Nitrogen 21 mg/dL (9-20); Calcium 8.4 mg/dL (8.4-10.2); Carbon Dioxide 39 mmol/L (22-30); Chloride 93 mmol/L (98-107); Creatine Kinase 466 U/L (55-170); Glucose 201 mg/dL (74-99); Non-African American GFR(CKD) 82 (>60 ml/min/1.73 sqM); Potassium 3.6 mmol/L (3.5-5.1); Sodium 136 mmol/L (137-145)
[2020-05-01] MEDS: FUROSEMIDE 10 MG/ML 4 ML VIAL IV SCH (08:56)
[2020-05-01] MEDS: HEPARIN SODIUM,PORCINE 5,000 UNIT/ML 1 ML VIAL SQ SCH ×2 (08:56→20:37)
[2020-05-01] MEDS: FUROSEMIDE 40 MG TAB PO SCH ×2 (11:51→12:45)
[2020-05-01 12:13] LABS: Glucose,Whole Blood 232 mg/dL (75-99)
--- NOTE | 2020-05-01 12:40 | P.PN ---
Subjective Progress Note Date: 05/01/20 Principal diagnosis: Weakness, fall, diastolic congestive heart failure 75-year-old white male patient with past medical history of diabetes, COPD, prostate cancer treated with radiation, ex-smoker, patient carries a 47 years of smoking of one pack per day, who presented to the hospital per EMS after having a syncopal episode, and a fall at home. He has been complaining of weakness which was increasing over last couple days. Patient was having trouble getting up and down off the toilet. He fell out of bed by denied any head injury or loss of consciousness. No headaches, no lightheadedness or dizziness. Patient was just complaining of feeling weak. He has noticed increased blood sugars, states has been compliant with his medications, no abdominal pain, no nausea v omiting or diarrhea. No fever or chills. No cough or congestion, no difficulty breathing. Chest x-ray showed no acute cardiopulmonary process. Chest x-ray showed no acute cardiopulmonary process. EKG showed sinus tachycardia with a right bundle branch block pattern, and evidence of lateral and inferior infarct of undetermined age. Low-grade temperature with 99.2F on admission, has been afebrile overnight, currently on 2 L of oxygen and pulse ox 97%, hemodynamically patient has remained stable. Labs showed a mild leukocytosis with a white blood cell count of 14.9, hemoglobin of 14.6, d-dimer of 0.59, sodium of 136, rest of electrolytes were within normal limits, BUN 35 creatinine is 1.15, plasma lactic acid was mildly elevated at 3.3, total CK was 5041, troponin was negative at less than 0.012, urinalysis showed 4+ glucose, trace ketones, moderate amount of blood, but negative for any signs of infection, serum acetone was negative, serum glucose was 355. Patient was given IV fluids, total of 2 L, and his maintenance IV fluids infusing at a rate of 100. Patient was started on empiric diuretics in the form of Rocephin. On 04/30/2020 patient seen in follow-up on selective care unit. He is calm and comfortable, awake, oriented 3, resting in the recliner, in no acute distress, room air pulse ox 90%, hemodynamically stable, no fever or chills, no complaint of worsening dyspnea, we started patient on diuretics yesterday, the patient is in -3.1 L over the last 24 hours, CBC was within normal limits, sodium is 137, potassium 3.5, chloride is 94, CO2 is 33, BUN is 19, creatinine is 1.06. Urine and blood culture show no growth. Lower extremity Dopplers were negative for DVT. We'll contact IV fluids yesterday, patient CK is coming down nicely, down to 999 and this morning's labs. Renal function is within normal limits. The patient is seen today 05/01/2020 follow-up on the selective care unit. He is currently resting comfortably in bed. Awake and alert in no acute distress. No worsening shortness of breath, cough or congestion. Maintaining good O2 saturations in the mid 90s on room air. He's afebrile. Blood and urine cultures reveal no growth. White count 8.1. Hemoglobin 13.6. Sodium 136. Potassium 3.6. Creatinine 0.92. He remains on Lasix 40 mg IV every 8 hours. He remains in another 3 L negative balance. Weight continues to decrease. Low er extremity edema improved. Objective - Vital Signs Vital signs: Vital Signs Temp 98.1 F 05/01/20 08:00 Pulse 104 H 05/01/20 11:49 Resp 20 05/01/20 08:00 BP 123/60 05/01/20 08:00 Pulse Ox 95 05/01/20 08:00 Intake & Output 04/30/20 05/01/20 05/01/20 18:59 06:59 18:59 Intake Total 660 240 Output Total 1400 2675 Balance -740 -2675 240 Weight 104 kg Intake: Oral 660 240 Output: Urine 1400 2675 Other: Voiding Method Indwelling Catheter Indwelling Catheter Indwelling Catheter # Bowel Movements 1 - Exam GENERAL EXAM: Alert, very pleasant, 75-year-old male patient, morbidly obese, but awake and alert, oriented 3, resting comfortably in bed, room air pulse ox is 95% comfortable in no apparent distress. HEAD: Normocephalic/atraumatic. EYES: Normal reaction of pupils, equal size. Conjunctiva pink, sclera white. NOSE: Clear with pink turbinates. THROAT: No erythema or exudates. NECK: No masses, no JVD, no thyroid enlargement, no adenopathy. CHEST: No chest wall deformity. Symmetrical expansion. LUNGS: Equal air entry with crackles in the bilateral posterior bases CVS: Regular rate and rhythm, normal S1 and S2, no gallops, no murmurs, no rubs ABDOMEN: Soft, nontender. No hepatosplenomegaly, normal bowel sounds, no guarding or rigidity. EXTREMITIES: No clubbing, mild lower extremity edema, no cyanosis, 2+ pulses and upper and lower extremities. MUSCULOSKELETAL: Muscle strength and tone normal. SPINE: No scoliosis or deformity SKIN: No rashes CENTRAL NERVOUS SYSTEM: No focal deficits, tone is normal in all 4 extremities. PSYCHIATRIC: Alert and oriented -3. Appropriate affect. Intact judgment and insight. - Labs CBC & Chem 7: 05/01/20 07:33 05/01/20 07:33 Labs: Abnormal Lab Results - Last 24 Hours (Table) 04/30/20 04/30/20 04/30/20 Range/Units 12:23 17:10 20:18 Sodium (137-145) mmol/L Chloride (98-107) mmol/L Carbon Dioxide (22-30) mmol/L BUN (9-20) mg/dL Glucose (74-99) mg/dL POC Glucose (mg/dL) 210 H 206 H 309 H (75-99) mg/dL Creatine Kinase (55-170) U/L 05/01/20 05/01/20 05/01/20 Range/Units 06:04 07:33 12:12 Sodium 136 L (137-145) mmol/L Chloride 93 L (98-107) mmol/L Carbon Dioxide 39 H (22-30) mmol/L BUN 21 H (9-20) mg/dL Glucose 201 H (74-99) mg/dL POC Glucose (mg/dL) 183 H 232 H (75-99) mg/dL Creatine Kinase 466 H (55-170) U/L Microbiology - Last 24 Hours (Table) 04/28/20 18:33 Blood Culture - Preliminary Blood No Growth after 48 hours Assessment and Plan Assessment: #1. Shortness of breath, possibly related to lactic acidosis, chest x-ray showed no acute cardiopulmonary process. In the shortness of breath has improved, lactic acidosis has resolved #2. Rhabdomyolysis, mild, related to a fall at home, improved #3. Diabetes mellitus type II, uncontrolled #4. Possibility of COPD, severity of which is unknown at this time #5. Fluid volume overload, peripheral edema in lower extremities #6. Former smoker, carries [id number] smoking history, currently in remission #7. History of prostate cancer status post radiation therapy Plan: The patient was seen and evaluated by Dr. De La Rosa He continues to diurese well Discontinue IV diuretics Initiate Lasix 40 mg by mouth daily Increase his activity as tolerated Continue to follow I, the cosigning physician, performed a history & physical examination of the patient. Lungs sounds with faint crackles in the bilateral posterior bases. Maintaining good O2 saturations in the 90s on room air. I discussed the assessment and plan of care with my nurse practitioner, Rosy Saul. I attest to the above note as dictated by her.
[2020-05-01] MEDS: MULTIVITAMINS, THERA 1 EACH TAB PO SCH (12:44)
[2020-05-01] MEDS: THIAMINE 100 MG TAB PO SCH (12:44)
[2020-05-01] MEDS: FOLIC ACID 1 MG TAB PO SCH (12:45)
[2020-05-01] MEDS: SODIUM CHLORIDE 0.9% 1,000 ML IV SCH (16:36)
[2020-05-01 17:26] LABS: Glucose,Whole Blood 267 mg/dL (75-99)
--- NOTE | 2020-05-01 17:29 | P.PN ---
Subjective Progress Note Date: 05/01/20 Principal diagnosis: Weakness, fall, rhabdomyolysis 04/30/2020 patient seen in follow-up on selective care unit. He is calm and comfortable, awake, oriented 3, resting in the recliner, in no acute distress, room air pulse ox 90%, hemodynamically stable, no fever or chills, no complaint of worsening dyspnea, we started patient on diuretics yesterday, the patient is in -3.1 L over the last 24 hours, CBC was within normal limits, sodium is 137, potassium 3.5, chloride is 94, CO2 is 33, BUN is 19, creatinine is 1.06. Urine and blood culture show no growth. Lower extremity Dopplers were negative for DVT. We'll contact IV fluids yesterday, patient CK is coming down nicely, down to 999 and this morning's labs. Renal function is within normal limits. 05/01/2020 Patient is seen and evaluated in follow-up on the selective care unit. He is currently resting comfortably in bed. Awake and alert in no acute distress. He reports ambulating to the bathroom without any significant shortness of breath; No worsening shortness of breath, cough or congestion. Maintaining good O2 saturations in the mid 90s on room air. He's afebrile. Blood and urine cultures reveal no growth. White count 8.1. Hemoglobin 13.6. Sodium 136. Potassium 3.6. Creatinine 0.92. He remains on Lasix 40 mg IV every 8 hours. He remains in another 3 L negative balance. Weight continues to decrease. Lower extremity edema improved. Objective - Vital Signs Vital signs: Vital Signs Temp 98.1 F 05/01/20 08:00 Pulse 104 H 05/01/20 11:49 Resp 20 05/01/20 08:00 BP 123/60 05/01/20 08:00 Pulse Ox 95 05/01/20 08:00 Intake & Output 04/30/20 05/01/20 05/01/20 18:59 06:59 18:59 Intake Total 660 240 Output Total 1400 2675 Balance -740 -1535 240 Weight 104 kg Intake: Oral 660 240 Output: Urine 1400 2675 Other: Voiding Method Indwelling Catheter Indwelling Catheter Indwelling Catheter # Bowel Movements 1 - Exam GENERAL EXAM: Alert, very pleasant, 75-year-old white male, morbidly obese, but awake and alert, oriented 3, sitting up in the recliner, room air pulse ox is 94% comfortable in no apparent distress. HEAD: Normocephalic/atraumatic. EYES: Normal reaction of pupils, equal size. Conjunctiva pink, sclera white. NOSE: Clear with pink turbinates. THROAT: No erythema or exudates. NECK: No masses, no JVD, no thyroid enlargement, no adenopathy. CHEST: No chest wall deformity. Symmetrical expansion. LUNGS: Equal air entry with no crackles, wheeze, rhonchi or dullness. CVS: Regular rate and rhythm, normal S1 and S2, no gallops, no murmurs, no rubs ABDOMEN: Soft, nontender. No hepatosplenomegaly, normal bowel sounds, no guarding or rigidity. EXTREMITIES: No clubbing, mild lower extremity edema, no cyanosis, 2+ pulses and upper and lower extremities. - Labs CBC & Chem 7: 05/01/20 07:33 05/01/20 07:33 Labs: Abnormal Lab Results - Last 24 Hours (Table) 04/30/20 04/30/20 05/01/20 Range/Units 17:10 20:18 06:04 Sodium (137-145) mmol/L Chloride (98-107) mmol/L Carbon Dioxide (22-30) mmol/L BUN (9-20) mg/dL Glucose (74-99) mg/dL POC Glucose (mg/dL) 206 H 309 H 183 H (75-99) mg/dL Creatine Kinase (55-170) U/L 05/01/20 05/01/20 Range/Units 07:33 12:12 Sodium 136 L (137-145) mmol/L Chloride 93 L (98-107) mmol/L Carbon Dioxide 39 H (22-30) mmol/L BUN 21 H (9-20) mg/dL Glucose 201 H (74-99) mg/dL POC Glucose (mg/dL) 232 H (75-99) mg/dL Creatine Kinase 466 H (55-170) U/L Microbiology - Last 24 Hours (Table) 04/28/20 18:33 Blood Culture - Preliminary Blood No Growth after 48 hours Assessment and Plan Assessment: #1. Shortness of breath, possibly related to lactic acidosis, chest x-ray showed no acute cardiopulmonary process. In the shortness of breath has improved, lactic acidosis has resolved #2. Rhabdomyolysis, mild, related to a fall at home, improved #3. Diabetes mellitus type II, uncontrolled #4. Possibility of COPD, severity of which is unknown at this time #5. Fluid volume overload, peripheral edema in lower extremities Plan Continue current medical treatment, continue diuretics, fluid balance status is improving, renal function is within normal limits, CK is coming down, no worsening dyspnea, continue following bmp. No acute events overnight, no worsening dyspnea and chest pain or wheezing. Cardiovascular has been note
[2020-05-01 20:36] LABS: Glucose,Whole Blood 260 mg/dL (75-99)
[2020-05-01] MEDS: INSULIN DETEMIR (LEVEMIR) 100 UNIT/ML SYR SQ SCH (20:37)
[2020-05-02] MEDS: valACYclovir 500 MG TAB PO SCH ×4 (00:02→23:30)
[2020-05-02 06:01] LABS: Glucose,Whole Blood 179 mg/dL (75-99)
[2020-05-02] MEDS: glipiZIDE 10 MG TAB PO SCH ×2 (06:44→17:47)
[2020-05-02] MEDS: LOPERAMIDE 2 MG CAP PO SCH ×2 (06:44→17:47)
[2020-05-02] MEDS: PANTOPRAZOLE 40 MG TABLET PO SCH (06:45)
[2020-05-02] MEDS: metFORMIN 500 MG TAB PO SCH ×3 (06:45→17:47)
[2020-05-02] MEDS: CARBIDOPA-LEVODOPA 10-100 MG 1 EACH TAB PO SCH ×2 (06:47→17:47)
[2020-05-02] MEDS: DONEPEZIL 5 MG TAB PO SCH (06:47)
[2020-05-02] MEDS: INSULIN ASPART (NovoLOG) 100 UNIT/ML VIAL SQ SCH ×4 (06:48→20:57)
[2020-05-02] MEDS: IPRATROPIUM-ALBUTEROL 3 ML NEB INHALATION SCH ×4 (07:52→19:36)
--- NOTE | 2020-05-02 09:50 | CDI ---
Documentation Clarification Form Date: 05/02/2020 0940 CDS: Carli Fair RN, CCDS Admit Date: 04/28/2020 1728 Patient Name: Dinesh Tapia ATTENTION: The Clinical Documentation Specialists (CDI) and [facility] Coding Staff appreciate your assistance in clarifying documentation. Please respond to the clarification below the line at the bottom and electronically sign. The CDI & [facility] Coding staff will review the response and follow-up if needed. Please note: Queries are made part of the Legal Health Record. If you have any questions, please contact the author of this message via ITS. Dr. De La Rosa Diastolic CHF is documented in the 05/01 Pulmonary Progress note and requires and acuity. History/Risk Factors: DM2, Hyponatremia Clinical Indicators: 05/01 Pulmonary Progress note: "Principal diagnosis: Weakness, fall, diastolic congestive heart failure." 04/29-04/29 Attending and Pulmonary Progress notes: " Fluid volume overload, peripheral edema in lower extremities," 04/28/2020 1453 VS/Pulse OX: Temp 99.2, HR 114, RR 18, B/P 152/91, Spo2 96% 2L NC BNP: 98 04/29/2020 Echocardiogram Results: EF 50-55% 04/30 Chest X Ray:" COPD, small pleural effusion present posteriorly." Treatment: 04/29-05/01 Lasix 40 mg IVP Q 8 hrs 05/01 to current Lasix 40 mg Po QD In your professional opinion, can you please clarify the acuity and type of CHF if known? Acute Diastolic Heart Failure Chronic Diastolic Heart Failure Acute on Chronic Diastolic Heart Failure Unable to Determine Other, please specify (Last Revision: November 2017) Acute on Chronic Diastolic Heart Failure MTDD
[2020-05-02] MEDS: FUROSEMIDE 40 MG TAB PO SCH (09:56)
[2020-05-02] MEDS: HEPARIN SODIUM,PORCINE 5,000 UNIT/ML 1 ML VIAL SQ SCH ×2 (09:56→20:57)
[2020-05-02 12:07] LABS: Glucose,Whole Blood 151 mg/dL (75-99)
[2020-05-02] MEDS: THIAMINE 100 MG TAB PO SCH (12:34)
[2020-05-02] MEDS: MULTIVITAMINS, THERA 1 EACH TAB PO SCH (12:34)
[2020-05-02] MEDS: FOLIC ACID 1 MG TAB PO SCH (12:34)
--- NOTE | 2020-05-02 13:02 | P.PN ---
Subjective Progress Note Date: 05/02/20 Principal diagnosis: Weakness, fall, diastolic congestive heart failure 75-year-old white male patient with past medical history of diabetes, COPD, prostate cancer treated with radiation, ex-smoker, patient carries a 47 years of smoking of one pack per day, who presented to the hospital per EMS after having a syncopal episode, and a fall at home. He has been complaining of weakness which was increasing over last couple days. Patient was having trouble getting up and down off the toilet. He fell out of bed by denied any head injury or loss of consciousness. No headaches, no lightheadedness or dizziness. Patient was just complaining of feeling weak. He has noticed increased blood sugars, states has been compliant with his medications, no abdominal pain, no nausea v omiting or diarrhea. No fever or chills. No cough or congestion, no difficulty breathing. Chest x-ray showed no acute cardiopulmonary process. Chest x-ray showed no acute cardiopulmonary process. EKG showed sinus tachycardia with a right bundle branch block pattern, and evidence of lateral and inferior infarct of undetermined age. Low-grade temperature with 99.2F on admission, has been afebrile overnight, currently on 2 L of oxygen and pulse ox 97%, hemodynamically patient has remained stable. Labs showed a mild leukocytosis with a white blood cell count of 14.9, hemoglobin of 14.6, d-dimer of 0.59, sodium of 136, rest of electrolytes were within normal limits, BUN 35 creatinine is 1.15, plasma lactic acid was mildly elevated at 3.3, total CK was 5041, troponin was negative at less than 0.012, urinalysis showed 4+ glucose, trace ketones, moderate amount of blood, but negative for any signs of infection, serum acetone was negative, serum glucose was 355. Patient was given IV fluids, total of 2 L, and his maintenance IV fluids infusing at a rate of 100. Patient was started on empiric diuretics in the form of Rocephin. On 04/30/2020 patient seen in follow-up on selective care unit. He is calm and comfortable, awake, oriented 3, resting in the recliner, in no acute distress, room air pulse ox 90%, hemodynamically stable, no fever or chills, no complaint of worsening dyspnea, we started patient on diuretics yesterday, the patient is in -3.1 L over the last 24 hours, CBC was within normal limits, sodium is 137, potassium 3.5, chloride is 94, CO2 is 33, BUN is 19, creatinine is 1.06. Urine and blood culture show no growth. Lower extremity Dopplers were negative for DVT. We'll contact IV fluids yesterday, patient CK is coming down nicely, down to 999 and this morning's labs. Renal function is within normal limits. The patient is seen today 05/01/2020 follow-up on the selective care unit. He is currently resting comfortably in bed. Awake and alert in no acute distress. No worsening shortness of breath, cough or congestion. Maintaining good O2 saturations in the mid 90s on room air. He's afebrile. Blood and urine cultures reveal no growth. White count 8.1. Hemoglobin 13.6. Sodium 136. Potassium 3.6. Creatinine 0.92. He remains on Lasix 40 mg IV every 8 hours. He remains in another 3 L negative balance. Weight continues to decrease. Low er extremity edema improved. The patient is seen today 05/02/2020 follow-up on the selective care unit. He is currently resting flat in bed. Awake and alert in no acute distress. No worsening shortness of breath, cough or congestion. He is currently maintaining O2 saturation in the 90s on room air. He's afebrile. He is feeling stronger today. Blood cultures reveal no growth. Urine culture reveals no growth. Blood glucose 151. Transition to oral Lasix. Objective - Vital Signs Vital signs: Vital Signs Temp 98.1 F 05/02/20 08:00 Pulse 100 05/02/20 11:44 Resp 18 05/02/20 08:00 BP 133/68 05/02/20 08:00 Pulse Ox 92 L 05/02/20 08:00 Intake & Output 05/01/20 05/02/20 05/02/20 18:59 06:59 18:59 Intake Total 720 0 120 Output Total 1775 2099 Balance -1054 -2099 120 Intake: Oral 720 0 120 Output: Urine 1774 2099 Other: Voiding Method Indwelling Catheter Indwelling Catheter Indwelling Catheter # Bowel Movements 1 1 - Exam GENERAL EXAM: Alert, very pleasant, 75-year-old male patient, morbidly obese, but awake and alert, oriented 3, resting comfortably in bed, room air pulse ox is 92% comfortable in no apparent distress. HEAD: Normocephalic/atraumatic. EYES: Normal reaction of pupils, equal size. Conjunctiva pink, sclera white. NOSE: Clear with pink turbinates. THROAT: No erythema or exudates. NECK: No masses, no JVD, no thyroid enlargement, no adenopathy. CHEST: No chest wall deformity. Symmetrical expansion. LUNGS: Equal air entry with crackles in the bilateral posterior bases CVS: Regular rate and rhythm, normal S1 and S2, no gallops, no murmurs, no rubs ABDOMEN: Soft, nontender. No hepatosplenomegaly, normal bowel sounds, no guarding or rigidity. EXTREMITIES: No clubbing, mild lower extremity edema, no cyanosis, 2+ pulses and upper and lower extremities. MUSCULOSKELETAL: Muscle strength and tone normal. SPINE: No scoliosis or deformity SKIN: No rashes CENTRAL NERVOUS SYSTEM: No focal deficits, tone is normal in all 4 extremities. PSYCHIATRIC: Alert and oriented -3. Appropriate affect. Intact judgment and insight. - Labs CBC & Chem 7: 05/01/20 07:33 05/01/20 07:33 Labs: Abnormal Lab Results - Last 24 Hours (Table) 05/01/20 05/01/20 05/02/20 Range/Units 17:24 20:35 06:00 POC Glucose (mg/dL) 267 H 260 H 179 H (75-99) mg/dL 05/02/20 Range/Units 11:45 POC Glucose (mg/dL) 151 H (75-99) mg/dL Microbiology - Last 24 Hours (Table) 04/28/20 18:33 Blood Culture - Preliminary Blood No Growth after 72 hours Assessment and Plan Assessment: #1. Acute exacerbation of diastolic congestive heart failure, recovered and on room air #2. Rhabdomyolysis, mild, related to a fall at home, improved #3. Diabetes mellitus type II, uncontrolled #4. Possibility of COPD, severity of which is unknown at this time #5. Fluid volume overload, peripheral edema in lower extremities #6. Former smoker, carries [id number] smoking history, currently in remission #7. History of prostate cancer status post radiation therapy Plan: The patient was seen and evaluated by Dr. De La Rosa On oral diuretics Home once cleared medically We will see as needed I, the cosigning physician, performed a history & physical examination of the patient. Lungs sounds with faint crackles in the bilateral posterior bases. Maintaining good O2 saturations in the 90s on room air. I discussed the assessment and plan of care with my nurse practitioner, Rosy Saul. I attest to the above note as dictated by her.
--- NOTE | 2020-05-02 14:19 | P.PN ---
Subjective Progress Note Date: 05/02/20 Principal diagnosis: Weakness, fall, rhabdomyolysis 04/30/2020 patient seen in follow-up on selective care unit. He is calm and comfortable, awake, oriented 3, resting in the recliner, in no acute distress, room air pulse ox 90%, hemodynamically stable, no fever or chills, no complaint of worsening dyspnea, we started patient on diuretics yesterday, the patient is in -3.1 L over the last 24 hours, CBC was within normal limits, sodium is 137, potassium 3.5, chloride is 94, CO2 is 33, BUN is 19, creatinine is 1.06. Urine and blood culture show no growth. Lower extremity Dopplers were negative for DVT. We'll contact IV fluids yesterday, patient CK is coming down nicely, down to 999 and this morning's labs. Renal function is within normal limits. 05/01/2020 Patient is seen and evaluated in follow-up on the selective care unit. He is currently resting comfortably in bed. Awake and alert in no acute distress. He reports ambulating to the bathroom without any significant shortness of breath; No worsening shortness of breath, cough or congestion. Maintaining good O2 saturations in the mid 90s on room air. He's afebrile. Blood and urine cultures reveal no growth. White count 8.1. Hemoglobin 13.6. Sodium 136. Potassium 3.6. Creatinine 0.92. He remains on Lasix 40 mg IV every 8 hours. He remains in another 3 L negative balance. Weight continues to decrease. Lower extremity edema improved. 05/02/2020 Patient is seen and follow-up on the selective care unit. Denies any specific complaints. Awake and alert in no acute distress. No worsening shortness of breath, cough or congestion. He is currently maintaining O2 saturation in the 90s on room air. He's afebrile. He is feeling stronger today. Blood cultures reveal no growth. Urine culture reveals no growth. Blood glucose 151. Tr ansition to oral Lasix. Patient has been evaluated by physical therapy and is recommended skilled rehab; case management on board Objective - Vital Signs Vital signs: Vital Signs Temp 98.1 F 05/02/20 08:00 Pulse 104 H 05/02/20 08:02 Resp 18 05/02/20 08:00 BP 133/68 05/02/20 08:00 Pulse Ox 92 L 05/02/20 08:00 Intake & Output 05/01/20 05/02/20 05/02/20 18:59 06:59 18:59 Intake Total 720 0 Output Total 1774 2099 Balance -1054 -2099 Intake: Oral 720 0 Output: Urine 1774 2099 Other: Voiding Method Indwelling Catheter Indwelling Catheter Indwelling Catheter # Bowel Movements 1 1 - Exam GENERAL EXAM: Alert, very pleasant, 75-year-old white male, morbidly obese, but awake and alert, oriented 3, sitting up in the recliner, room air pulse ox is 94% comfortable in no apparent distress. HEAD: Normocephalic/atraumatic. EYES: Normal reaction of pupils, equal size. Conjunctiva pink, sclera white. NOSE: Clear with pink turbinates. THROAT: No erythema or exudates. NECK: No masses, no JVD, no thyroid enlargement, no adenopathy. CHEST: No chest wall deformity. Symmetrical expansion. LUNGS: Equal air entry with no crackles, wheeze, rhonchi or dullness. CVS: Regular rate and rhythm, normal S1 and S2, no gallops, no murmurs, no rubs ABDOMEN: Soft, nontender. No hepatosplenomegaly, normal bowel sounds, no guarding or rigidity. EXTREMITIES: No clubbing, mild lower extremity edema, no cyanosis, 2+ pulses and upper and lower extremities. - Labs CBC & Chem 7: 05/01/20 07:33 05/01/20 07:33 Labs: Abnormal Lab Results - Last 24 Hours (Table) 05/01/20 05/01/20 05/01/20 Range/Units 12:12 17:24 20:35 POC Glucose (mg/dL) 232 H 267 H 260 H (75-99) mg/dL 05/02/20 Range/Units 06:00 POC Glucose (mg/dL) 179 H (75-99) mg/dL Microbiology - Last 24 Hours (Table) 04/28/20 18:33 Blood Culture - Preliminary Blood No Growth after 72 hours Assessment and Plan Assessment: #1. Shortness of breath, possibly related to lactic acidosis, chest x-ray showed no acute cardiopulmonary process. In the shortness of breath has improved, lactic acidosis has resolved #2. Rhabdomyolysis, mild, related to a fall at home, improved #3. Diabetes mellitus type II, uncontrolled #4. Possibility of COPD, severity of which is unknown at this time #5. Fluid volume overload, peripheral edema in lower extremities Plan Continue current medical treatment, continue diuretics, fluid balance status is improving, renal function is within normal limits, CK is coming down, no worsening dyspnea, continue following bmp. No acute events overnight, no worsening dyspnea and chest pain or wheezing. Cardiovascular has been note
[2020-05-02 16:56] LABS: Glucose,Whole Blood 164 mg/dL (75-99)
[2020-05-02 19:57] LABS: Glucose,Whole Blood 261 mg/dL (75-99)
[2020-05-02] MEDS: INSULIN DETEMIR (LEVEMIR) 100 UNIT/ML SYR SQ SCH (20:57)
[2020-05-03] MEDS: SODIUM CHLORIDE 0.9% 1,000 ML IV SCH (05:16)
[2020-05-03 06:11] LABS: Glucose,Whole Blood 156 mg/dL (75-99)
[2020-05-03] MEDS: metFORMIN 500 MG TAB PO SCH ×2 (06:35→12:39)
[2020-05-03] MEDS: DONEPEZIL 5 MG TAB PO SCH (06:35)
[2020-05-03] MEDS: LOPERAMIDE 2 MG CAP PO SCH (06:35)
[2020-05-03] MEDS: PANTOPRAZOLE 40 MG TABLET PO SCH (06:35)
[2020-05-03] MEDS: CARBIDOPA-LEVODOPA 10-100 MG 1 EACH TAB PO SCH (06:35)
[2020-05-03] MEDS: glipiZIDE 10 MG TAB PO SCH (06:35)
[2020-05-03] MEDS: INSULIN ASPART (NovoLOG) 100 UNIT/ML VIAL SQ SCH ×2 (06:36→12:39)
[2020-05-03] MEDS: IPRATROPIUM-ALBUTEROL 3 ML NEB INHALATION SCH ×4 (07:45→15:11)
[2020-05-03] MEDS: HEPARIN SODIUM,PORCINE 5,000 UNIT/ML 1 ML VIAL SQ SCH (09:30)
[2020-05-03] MEDS: FUROSEMIDE 40 MG TAB PO SCH (09:30)
[2020-05-03] MEDS: valACYclovir 500 MG TAB PO SCH (09:31)
[2020-05-03 11:18] VITALS: TEMP 98
[2020-05-03 11:46] LABS: Glucose,Whole Blood 170 mg/dL (75-99)
[2020-05-03 12:10] VITALS: BP 162/77
[2020-05-03] MEDS: FOLIC ACID 1 MG TAB PO SCH (12:39)
[2020-05-03] MEDS: MULTIVITAMINS, THERA 1 EACH TAB PO SCH (12:39)
[2020-05-03] MEDS: THIAMINE 100 MG TAB PO SCH (12:39)
--- NOTE | 2020-05-03 12:47 | P.PN ---
Subjective Progress Note Date: 05/03/20 Principal diagnosis: Weakness, fall, rhabdomyolysis 75-year-old white male patient with past medical history of diabetes, COPD, prostate cancer treated with radiation, ex-smoker, patient carries a 47 years of smoking of one pack per day, who presented to the hospital per EMS after having a syncopal episode, and a fall at home. He has been complaining of weakness which was increasing over last couple days. Patient was having trouble getting up and down off the toilet. He fell out of bed by denied any head injury or loss of consciousness. No headaches, no lightheadedness or dizziness. Patient was just complaining of feeling weak. He has noticed increased blood sugars, states has been compliant with his medications, no abdominal pain, no nausea vomiting or diarrhea. No fever or chills. No cough or congestion, no difficulty breathing. Chest x-ray showed no acute cardiopulmonary process. Chest x-ray showed no acute cardiopulmonary process. EKG showed sinus tac hycardia with a right bundle branch block pattern, and evidence of lateral and inferior infarct of undetermined age. Low-grade temperature with 99.2F on admission, has been afebrile overnight, currently on 2 L of oxygen and pulse ox 97%, hemodynamically patient has remained stable. Labs showed a mild leukocytosis with a white blood cell count of 14.9, hemoglobin of 14.6, d-dimer of 0.59, sodium of 136, rest of electrolytes were within normal limits, BUN 35 creatinine is 1.15, plasma lactic acid was mildly elevated at 3.3, total CK was 5041, troponin was negative at less than 0.012, urinalysis showed 4+ glucose, trace ketones, moderate amount of blood, but negative for any signs of infecti on, serum acetone was negative, serum glucose was 355. Patient was given IV fluids, total of 2 L, and his maintenance IV fluids infusing at a rate of 100. Patient was started on empiric diuretics in the form of Rocephin. On 04/30/2020 patient seen in follow-up on selective care unit. He is calm and comfortable, awake, oriented 3, resting in the recliner, in no acute distress, room air pulse ox 90%, hemodynamically stable, no fever or chills, no complaint of worsening dyspnea, we started patient on diuretics yesterday, the patient is in -3.1 L over the last 24 hours, CBC was within normal limits, sodium is 137, potassium 3.5, chloride is 94, CO2 is 33, BUN is 19, creatinine is 1.06. Urine and blood culture show no growth. Lower extremity Dopplers were negative for DVT. We'll contact IV fluids yesterday, patient CK is coming down nicely, down to 999 and this morning's labs. Renal function is within normal limits. On 05/03/2020 patient seen in follow-up on selective care unit. He is calm and comfortable, he sitting up in the chair, currently on room air, vital signs have been stable, he is currently on 2 L, his pulse ox is 95%, no fever or chills, hemodynamically patient has been stable, no worsening dyspnea. Lung sounds reveal a few scattered wheezes, otherwise no acute distress, patient remains on a once daily dose of oral Lasix. He is in -820 ML fluid balance over the last 24 hours. His blood and urine have been negative. he is on empiric antibody is no form of Rocephin, has had no fever or chills, no new labs today. Objective - Vital Signs Vital signs: Vital Signs Temp 98.0 F 05/03/20 08:00 Pulse 110 H 05/03/20 12:00 Resp 24 05/03/20 12:00 BP 162/77 05/03/20 12:00 Pulse Ox 95 05/03/20 12:00 Intake & Output 05/02/20 05/03/20 05/03/20 18:59 06:59 18:59 Intake Total 600 240 Output Total 1000 420 Balance -400 -420 240 Weight 104.2 kg Intake: Oral 600 240 Output: Urine 1000 420 Other: Voiding Method Indwelling Catheter Indwelling Catheter Toilet # Voids 1 2 # Bowel Movements 1 - Exam GENERAL EXAM: Alert, very pleasant, 75-year-old white male, morbidly obese, but awake and alert, oriented 3, sitting up in the recliner, room air pulse ox is 94% comfortable in no apparent distress. HEAD: Normocephalic/atraumatic. EYES: Normal reaction of pupils, equal size. Conjunctiva pink, sclera white. NOSE: Clear with pink turbinates. THROAT: No erythema or exudates. NECK: No masses, no JVD, no thyroid enlargement, no adenopathy. CHEST: No chest wall deformity. Symmetrical expansion. LUNGS: Equal air entry with no crackles, wheeze, rhonchi or dullness. CVS: Regular rate and rhythm, normal S1 and S2, no gallops, no murmurs, no rubs ABDOMEN: Soft, nontender. No hepatosplenomegaly, normal bowel sounds, no guarding or rigidity. EXTREMITIES: No clubbing, mild lower extremity edema, no cyanosis, 2+ pulses and upper and lower extremities. MUSCULOSKELETAL: Muscle strength and tone normal. SPINE: No scoliosis or deformity SKIN: No rashes CENTRAL NERVOUS SYSTEM: Alert and oriented -3. No focal deficits, tone is normal in all 4 extremities. PSYCHIATRIC: Alert and oriented -3. Appropriate affect. Intact judgment and insight. - Labs CBC & Chem 7: 05/01/20 07:33 05/01/20 07:33 Labs: Abnormal Lab Results - Last 24 Hours (Table) 05/02/20 05/02/20 05/03/20 Range/Units 16:43 19:56 06:10 POC Glucose (mg/dL) 164 H 261 H 156 H (75-99) mg/dL 05/03/20 Range/Units 11:43 POC Glucose (mg/dL) 170 H (75-99) mg/dL Microbiology - Last 24 Hours (Table) 04/28/20 18:33 Blood Culture - Preliminary Blood No Growth after 96 hours Assessment and Plan Plan: Assessment: #1. Shortness of breath, possibly related to lactic acidosis, chest x-ray showed no acute cardiopulmonary process. In the shortness of breath has improved, lactic acidosis has resolved #2. Rhabdomyolysis, mild, related to a fall at home, improved #3. Diabetes mellitus type II, uncontrolled #4. Possibility of COPD, severity of which is unknown at this time #5. Fluid volume overload, peripheral edema in lower extremities #6. Former smoker, carries [id number] smoking history, currently in remission #7. History of prostate cancer status post radiation therapy Plan: Patient has been on oral diuretics, he is maintaining stable O2 saturation, has had no fever or chills, has had stable vital signs, he is tolerating ambulation with supervision, has had no acute events overnight, discharge planning is in progress for possible discharge to [facility] possibly today. I performed a history & physical examination of the patient and discussed their management with my nurse practitioner, Allie Quiles. I reviewed the nurse practitioner's note and agree with the documented findings and plan of care. Lung sounds are positive for clear breath sounds. The findings and the impression was discussed with the patient. I attest to the documentation by the nurse practitioner. Time with Patient: Less than 30
[2020-05-03 15:14] VITALS: RESP 16
--- NOTE | 2020-05-03 15:18 | P.DS ---
Providers Date of admission: 04/28/20 17:28 Expected date of discharge: 05/03/20 Attending physician: Shaun Lopez Consults: 04/28/20 18:08 Consult Physician Routine Consulting Provider: Brody De La Rosa Consult Reason/Comments: sob Do you want consulting provider notified?: Yes Primary care physician: Cortez Krishna Hospital Course: Discharge diagnosis Shortness of breath secondary to acute CHF with diastolic dysfunction. Improved now Lactic acidosis resolved Hyperglycemia with uncontrolled diabetes type 2 hemoglobin A1c 8.7 Mild rhabdomyolysis improved now Possible COPD Fluid overload with peripheral edema in the lower extremities Previous history of smoking currently in remission History of prostate cancer status post radiation Hospital course 75-year-old white male patient with past medical history of diabetes, COPD, prostate cancer treated with radiation, ex-smoker, patient carries a 47 years of smoking of one pack per day, who presented to the hospital per EMS after having a syncopal episode, and a fall at home. He has been complaining of weakness which was increasing over last couple days. Patient was having trouble getting up and down off the toilet. He fell out of bed by denied any head injury or loss of consciousness. Patient was found to have rhabdomyolysis and was continued on IV hydration. CPK level came down to 400s. Patient was also found have fluid overload and was started on Lasix IV currently changed to 40 mg daily. Was treated for possible urinary tract infection. Urine culture showed no growth. During the hospital the patient was noticed to have some rash on the left upper shoulder which is improved now. Patient is currently sitting in a chair comfortably. On oxygen at 2 L which is being titrated down to room air. Hemodynamically stable. No acute distress. Patient will be continued on oral Lasix at rehab. No fever no chills. No acute overnight issues. Patient was hyperglycemic and was continued on glipizide as well as metformin as per his home dose. Added Levemir 25 units at bedtime for better blood sugar control. Patient was seen by pulmonary during the hospital course. Patient had 2-D echocardiogram and lower extremity duplex scan showed no DVT. Patient is being discharged to rehab for physical therapy and follow with primary care physician in the next 3-5 days. PHYSICAL EXAMINATION: Patient is lying in the bed comfortably, no acute distress, awake alert and oriented.. HEENT: Normocephalic. Neck is supple. Pupils reactive. Nostrils clear. Oral cavity is moist. Ears reveal no drainage. Neck reveals no JVD, carotid bruits, or thyromegaly. CHEST EXAMINATION: Trachea is central. Symmetrical expansion. Bilateral basilar crackles and mild expiratory wheeze. Nonlabored breathing. CARDIAC: Normal S1, S2 with no gallops. No murmurs ABDOMEN: Soft. Bowel sounds normal. No organomegaly. No abdominal bruits. Extremities: 1+ edema. No clubbing or cyanosis Neurologically awake, alert, oriented x3 with well-coordinated movements. No focal deficits noted Skin: No rash or skin lesions. Psychiatric: Coperative. Nonsuicidal Musculoskeletal: No joint swelling or deformity. Normal range of motion. Vital Signs 05/03/20 05/03/20 05/03/20 07:46 07:58 08:00 Temperature 98.0 F Pulse Rate 96 100 Pulse Rate [ 101 H Right Supine] Respiratory 20 Rate Blood Pressure 143/77 [Right Arm Supine] O2 Sat by Pulse 96 Oximetry 05/03/20 05/03/20 05/03/20 11:41 11:50 12:00 Temperature Pulse Rate 92 100 Pulse Rate [ 110 H Right Supine] Respiratory 24 Rate Blood Pressure 162/77 [Right Arm Supine] O2 Sat by Pulse 95 Oximetry 05/03/20 15:11 Temperature Pulse Rate 94 Pulse Rate [ Right Supine] Respiratory 16 Rate Blood Pressure [Right Arm Supine] O2 Sat by Pulse Oximetry Total time taken greater than 35 minutes including 18 minutes for counseling and coordination of care. Patient Condition at Discharge: Fair Plan - Discharge Summary Discharge Rx Participant: No New Discharge Prescriptions: New Folic Acid 1 mg PO DAILY@1200 #30 tab Furosemide [Lasix] 40 mg PO DAILY #30 tab Thiamine [Vitamin B-1] 100 mg PO DAILY@1200 #30 tab Insulin Detemir (Levemir) [Levemir] 25 unit SQ HS #1 syr Multivitamins, Thera [Multivitamin (formulary)] 1 each PO DAILY@1200 #30 tab Continue Omeprazole [PriLOSEC] 40 mg PO AC-BRKFST #14 capsule. Albuterol Inhaler [Ventolin Hfa Inhaler] 1 puff INHALATION RT-BID Loperamide HCl [Imodium A-D] 2 mg PO AC-BID Donepezil [Aricept] 5 mg PO AC-BRKFST Carbidopa-Levodopa 10-100 mg [Sinemet 10-100 mg] 1 tab PO AC-BID metFORMIN HCL [Glucophage] 500 mg PO AC-TID glipiZIDE XL [Glucotrol XL] 10 mg PO AC-BID Discontinued Furosemide [Lasix] 20 mg PO AC-BRKFST Discharge Medication List Omeprazole [PriLOSEC] 40 mg PO AC-BRKFST #14 capsule. 06/27/18 [Rx] Albuterol Inhaler [Ventolin Hfa Inhaler] 1 puff INHALATION RT-BID 04/28/20 [History] Carbidopa-Levodopa 10-100 mg [Sinemet 10-100 mg] 1 tab PO AC-BID 04/28/20 [History] Donepezil [Aricept] 5 mg PO AC-BRKFST 04/28/20 [History] Loperamide HCl [Imodium A-D] 2 mg PO AC-BID 04/28/20 [History] glipiZIDE XL [Glucotrol XL] 10 mg PO AC-BID 04/28/20 [History] metFORMIN HCL [Glucophage] 500 mg PO AC-TID 04/28/20 [History] Folic Acid 1 mg PO DAILY@1200 #30 tab 05/03/20 [Rx] Furosemide [Lasix] 40 mg PO DAILY #30 tab 05/03/20 [Rx] Insulin Detemir (Levemir) [Levemir] 25 unit SQ HS #1 syr 05/03/20 [Rx] Multivitamins, Thera [Multivitamin (formulary)] 1 each PO DAILY@1200 #30 tab 05/03/20 [Rx] Thiamine [Vitamin B-1] 100 mg PO DAILY@1200 #30 tab 05/03/20 [Rx] Follow up Appointment(s)/Referral(s): Tomi Toro MD [Primary Care Provider] - 1-2 days Discharge Disposition: TRANSFER TO SNF/ECF
[2020-05-03 15:23] VITALS: PULSE 99
== END 2020-05-03 17:05 | DRG 292 ==
LOC: EC 14:35 → 3SCARD 17:28
PROVIDERS: ADMIT Hospitalist; ATTEND Hospitalist
DX: I50.33 Acute on chronic diastolic (congestive) heart failure (principal); E87.1 Hypo-osmolality and hyponatremia; E87.2 Acidosis; M62.82 Rhabdomyolysis; R17 Unspecified jaundice; E11.649 Type 2 diabetes mellitus with hypoglycemia without coma; E11.65 Type 2 diabetes mellitus with hyperglycemia; E66.9 Obesity, unspecified; G20 Parkinson's disease; I45.10 Unspecified right bundle-branch block; J44.9 Chronic obstructive pulmonary disease, unspecified; W06.XXXA Fall from bed, initial encounter; Y92.009 Unspecified place in unspecified non-institutional (private) residence as the place of occurrence of the external cause; Z68.33 Body mass index [BMI] 33.0-33.9, adult; Z79.4 Long term (current) use of insulin; Z79.899 Other long term (current) drug therapy; Z85.46 Personal history of malignant neoplasm of prostate; Z87.891 Personal history of nicotine dependence; Z92.3 Personal history of irradiation; D72.829 Elevated white blood cell count, unspecified; R21 Rash and other nonspecific skin eruption
CPT/HCPCS: 36415; 51702; 71046; 80048; 80053; 81001; 82009; 82550; 82553; 83036; 83605; 83735; 83880; 84145; 84439; 84443; 84484; 85025; 85379; 85610; 85730; 87040; 87086; 93005; 93306; 93970; 94640; 94760; 96360; 96361; 99285